=== PATIENT | male | born 2005 | race Caucasian/White ===

== ENCOUNTER 2023-09-03 06:18 | Emergency (ER) | payer SELFPAY ==
[2023-09-03 06:42] VITALS: BP 143/70; PULSE 86; RESP 20; TEMP 38; O2SAT 97; BMI 16.5
[2023-09-03 07:41] LABS: PCR FLU A Negative PCR FLU A (Negative); PCR FLU B Negative PCR FLU B (Negative); PCR RSV POSITIVE PCR RSV (Negative)
[2023-09-03 07:44] LABS: SARS PCR* Negative SARS-CoV-2 (Negative)
--- NOTE | 2023-09-03 07:52 | ED_ITS ---
HPI - General Adult General Chief complaint: Fever Stated complaint: shaking, leg cramps Time Seen by Provider: 09/03/23 06:54 Source: patient Mode of arrival: ambulatory Limitations: no limitations History of Present Illness HPI narrative: 18-year-old male coming in today complaining of not feeling well. He has a fever, cramping in his legs. He has had normal appetite. He does have a mild cough. Denies sore throat or earache. No headache. He is currently being treated for ear infection. Denies any diarrhea or abdominal discomfort. Cough is nonproductive and mild. Related Data Allergies Allergy/AdvReac Type Severity Reaction Status Date / Time aripiprazole Allergy Severe Seizure Verified 09/03/23 06:58 cat dander Allergy Intermediate Wheezing Verified 09/03/23 06:58 Review of Systems Status of ROS: Reports: 10 or more systems reviewed and unremarkable except as noted in History and below Exam Narrative: Exam Narrative: Well-nourished well-developed patient in no acute distress. Alert and oriented. Answers questions appropriately. Mood and affect are appropriate. Thoughts are goal oriented and rational. No tangential or magical thinking noted. Patient speaks in full sentences without needing to catch his breath. Speech is not slurred or pressured. He does not sound congested. HEENT: Normocephalic atraumatic. Pupils are equally round reactive to light. Extraocular muscles are intact. Conjunctivae are moist without any icterus noted. Moist mucous membranes. Posterior pharynx is normal. Neck is soft without any lymphadenopathy or thyromegaly. No masses are appreciated. Cardiovascular: Heart is regular rate and rhythm S1 and S2 are present without any murmurs. Lungs: Clear to auscultation bilaterally no wheezes rhonchi or rales are appreciated. Patient takes deep breaths without any discomfort. Abdomen: Soft and nontender nondistended with normal bowel sounds. Extremities: Bilateral lower extremities are without edema. Skin: Well perfused without any obvious rashes. Const: Vital Signs, click to edit/add: Vital Signs - 24 hr 09/03/23 06:42 Temperature 100.4 F H Pulse Rate [Left P ulse Oximeter] 86 Respiratory Rate 20 Blood Pressure [Ri ght Upper Arm] 143/70 H Pulse Oximetry 97 Oxygen Delivery Me thod Room Air Course Course ED Course: Triple swab was positive for RSV. Patient received a dose of Tylenol while he was here. Vital Signs Vital signs: Initial Vital Signs Temperature 100.4 F H 09/03/23 06:42 Temperature Source Temporal Artery Scan 09/03/23 06:42 Pulse Rate 86 09/03/23 06:42 Pulse Rhythm Regular 09/03/23 06:42 Respiratory Rate 20 09/03/23 06:42 Blood Pressure 143/70 H 09/03/23 06:42 Blood Pressure Mean 94 09/03/23 06:42 Blood Pressure Position Sitting 09/03/23 06:42 Pulse Oximetry 97 09/03/23 06:42 Oxygen Delivery Method Room Air 09/03/23 06:42 Vital Signs Temperature 100.4 F H 09/03/23 06:42 Pulse Rate 86 09/03/23 06:42 Respiratory Rate 20 09/03/23 06:42 Blood Pressure 143/70 H 09/03/23 06:42 Pulse Oximetry 97 09/03/23 06:42 Oxygen Delivery Method Room Air 09/03/23 06:42 Temperature 100.4 F H 09/03/23 06:42 Pulse Rate 86 09/03/23 06:42 Respiratory Rate 20 09/03/23 06:42 Blood Pressure 143/70 H 09/03/23 06:42 Pulse Oximetry 97 09/03/23 06:42 Oxygen Delivery Method Room Air 09/03/23 06:42 Medical Decision Making MDM Narrative Medical decision making narrative: 18-year-old male with fevers, cramping, positive for RSV. We discussed taking medication to keep his fevers down, we discussed increasing his fluid and food intake which will help with cramping. We discussed reasons to return. Patient was in agreement and had no other questions. Lab Data Lab results reviewed: Yes I reviewed the patient's lab results Labs: Lab Results 09/03/23 Range/Units 06:56 SARS-CoV-2 (PCR) Negative SARS-CoV-2 (Negative) Influenza Type A (PCR) Negative PCR FLU A (Negative) Influenza Type B (PCR) Negative PCR FLU B (Negative) RSV (PCR) POSITIVE PCR RSV A (Negative) Discharge Plan Discharge Clinical Impression: Respiratory syncytial virus (RSV) Patient Disposition: Home, Self-Care Condition: Stable Additional Instructions: Increase water and food intake. Take ibuprofen and/or Tylenol as needed/as directed to keep your fevers down. Follow Up/Referrals: Provider,Not a Local [Primary Care Provider] - Stand Alone Forms: [facility] Info Instructions
[2023-09-03 08:00] VITALS: TEMP 37.7
[2023-09-03] MEDS: ACETAMINOPHEN 500 MG TABLET 1000 MG PO (08:00)
[2023-09-03 08:01] VITALS: BP 138/71; PULSE 103; RESP 20; TEMP 37.7; O2SAT 97
== END 2023-09-03 08:04 | disposition home or self-care (01) ==
PROVIDERS: Family Medicine; Emergency Provider Family Medicine
DX: R50.9 Fever, unspecified (principal); B97.4 Respiratory syncytial virus as the cause of diseases classified elsewhere
CPT/HCPCS: 87631; 99283; 99284; A9270

== ENCOUNTER 2023-10-14 11:08 | Emergency (ER) | payer OTHER, SELFPAY ==
[2023-10-14 11:24] VITALS: BP 157/91; PULSE 80; RESP 20; TEMP 37.1; O2SAT 97
[2023-10-14 14:12] VITALS: BP 131/86; PULSE 60; RESP 16; O2SAT 99
--- NOTE | 2023-10-14 14:13 | ED_ITS ---
HPI - Psych General Time Seen by Provider: 14:13 Date Seen: 10/14/23 Chief Complaint: Psychiatric Problem/Disorder Stated Complaint: Depression Time Seen by Provider: 10/14/23 14:12 Source: patient and RN notes reviewed Mode of arrival: ambulatory Limitations: no limitations History of Present Illness HPI Narrative: This 18-year-old male is coming in with concern of underlying depression. He states the last 3-4 days it has been worse, he is had passive suicidal ideation but notes that he will not do it. He states he has 2 any family members to live for, could not inflict that level of pain on them. He has a long-term history of ADHD and depression. He states he has been on many medicines, he could not log into his healthcare chart. He notes he has tried Prozac, he is allergic to Abilify with the reported seizure from it. He thinks he has tried Zoloft. He has been on some different patches before. He has use Ritalin and Adderall for his ADHD. He is no longer on any ADHD meds. He has been on Wellbutrin in the past. He can not remember all of the different meds he has tried. He states he has had problems with doctors just prescribing him things. He last saw a therapist in June of 2022. He does not have any health insurance. He works from 8:00 a.m. to 5:00 p.m. during the day which makes getting into a clinic difficult. He could not get in anywhere today, actually did not go to work today to try to remedy his situation. He has otherwise been in good health, has no concerns with his underlying health. He denies any visual or auditory hallucinations. I have spent some time talking to him about all the different medicines he has been on, that we do not specialize in psychiatric medicine out of the ER. We basically stabilize people that her emergently ill, helped side of people need hospitalization. Did review with him that we have the telehealth that can help us possibly problem solve. He understands that without access to his full history, his extensive history of use of medicines that did not work for him, I a.m. very unlikely to be giving him initial medicine today. We will see if telehealth can potentially secure an appointment for medication consult in a timely fashion for him. From what he is telling me I am hopeful that he does not require hospitalization, he is certainly being proactive with his situ ation. complaint: suicidal ideation and feels depressed Related Data Home Medications Medication Instructions Recorded Confirmed No Known Home Medications 10/14/23 10/14/23 Allergies Allergy/AdvReac Type Severity Reaction Status Date / Time aripiprazole Allergy Severe Seizure Verified 09/03/23 06:58 cat dander Allergy Intermediate Wheezing Verified 09/03/23 06:58 Review of Systems Status of ROS: Reports: 6 or more systems reviewed and unremarkable except as noted in History and below PFSH PFS Social History Smoking Status: Current every day smoker What tobacco products do you use: cigarettes Do you use any of these nicotine containing products: None Second hand tobacco smoke exposure: No How often do you have a drink containing alcohol: never AUDIT-C Alcohol total score: 0 Non-prescribed substance use: denies use Exam Const: Vital Signs, click to edit/add: Vital Signs - 24 hr 10/14/23 11:24 10/14/23 14:12 Temperature 98.7 F Pulse Rate [Right Pulse Oximeter] 80 60 Respiratory Rate 20 16 Blood Pressure [Ri ght Upper Arm] 157/91 H 131/86 Pulse Oximetry 97 99 Oxygen Delivery Me thod Room Air Room Air Very well-kept 18-year-old male that is ambulatory into the ED. He is alert, i nteractive, no apparent distress. He has good eye contact, pupils are equal round reactive, sclera clear, symmetrical facial function. Neck is supple, no cervical adenopathy, no neck masses, full range of motion, no thyromegaly masses or nodules. Lungs are clear, good air entry, no wheezing or crackles. CV regular rate and rhythm, no murmur, normal S1-S2, no S3 or S4. Abdomen soft, nondistended, nontender, do not feel any organomegaly. Does endorse passive suicidal ideation without a definitive plan, no hallucinations. Documenting provider has reviewed patient's vital signs: yes Course Course ED Course: He understands that if telehealth does recommend hospitalization that we will need to proceed with laboratory workup. At this time I am not feeling it is necessary, am hopeful that we will be able to get him it disposition for outpatient follow-up. Consultations Consultation #1: Provided history to telehealth provider. She will be interviewing him next. 3:41 p.m.: Ashley Peng was the interviewer for [facility], she feels he is stable and safe for discharge, is not going to harm himself. Unfortunately he is applied for assistance for medical needs before, just does not have any extra money but makes too much. She has looked into [facility], crisis Center, walk-in clinic. She cannot schedule any psychiatry appointment for him due to no insurance. She understands the dilemma we are in given his complexity with prior medications, there is just no way that I a have any comfort level initiating medication management for him. Will have him try to follow up in clinic with his primary care provider if he can. Will give a note to be off today. Ashley feel she has some good resources for him that he will be able to look into an find some help with the information that she is providing him. She agrees with discharge to home. Time: 14:49 Vital Signs Vital signs: Initial Vital Signs Temperature 98.7 F 10/14/23 11:24 Temperature Source Oral 10/14/23 11:24 Pulse Rate 80 10/14/23 11:24 Pulse Rhythm Regular 10/14/23 11:24 Pulse Strength 3+ Normal 10/14/23 11:24 Respiratory Rate 20 10/14/23 11:24 Blood Pressure 157/91 H 10/14/23 11:24 Blood Pressure Mean 113 H 10/14/23 11:24 Blood Pressure Position Sitting 10/14/23 11:24 Pulse Oximetry 97 10/14/23 11:24 Oxygen Delivery Method Room Air 10/14/23 11:24 Vital Signs Temperature 98.7 F 10/14/23 11:24 Pulse Rate 80 10/14/23 11:24 Respiratory Rate 20 10/14/23 11:24 Blood Pressure 157/91 H 10/14/23 11:24 Pulse Oximetry 97 10/14/23 11:24 Oxygen Delivery Method Room Air 10/14/23 11:24 Temperature 98.7 F 10/14/23 11:24 Pulse Rate 60 10/14/23 14:12 Respiratory Rate 16 10/14/23 14:12 Blood Pressure 131/86 10/14/23 14:12 Pulse Oximetry 99 10/14/23 14:12 Oxygen Delivery Method Room Air 10/14/23 14:12 Discharge Plan Discharge Clinical Impression: Depression, Passive suicidal ideations Patient Disposition: Home, Self-Care Condition: Stable Instructions: Depression (ED), Suicide Prevention (ED) Additional Instructions: Recommend utilizing the resources and phone numbers provided to you by the telehealth provider. I also recommend that you try to follow-up in your primary care clinic, see if they may have any recommendations as far as medication management for you. Work with [facility] to see if they might be able to help you find a resource for medication management for your depression. Obviously if your worsening at any point, are feeling suicidal, do recommend that you seek emergent re-evaluation. Activity Level: Activity as Tolerated Prescriptions: No Action No Known Home Medications Follow Up/Referrals: Provider,Not a Local [Primary Care Provider] - Stand Alone Forms: [employer] Info Instructions
--- NOTE | 2023-10-14 16:09 | ED.NURSE ---
Went over DEC recommendations with pt, pt verbalized understanding of these recommendations. Resources given to pt.
== END 2023-10-14 16:00 | disposition home or self-care (01) ==
PROVIDERS: Emergency Provider Family Medicine
DX: R45.851 Suicidal ideations (principal); F32.A Depression, unspecified
CPT/HCPCS: 99283

== ENCOUNTER 2025-03-14 23:06 | Emergency (ER) | payer OTHER, SELFPAY ==
--- OUTSIDE RECORDS SUMMARY | 2025-03-14 23:09 | XMS_ITS | Encounter Summary ---
Author Organization [facility] Address [address] [place] [address] Care Team Providers Care Route Salesman Name Role Phone None Reported, Pcp Primary Care Provider Unavail able Reason for Visit * Reason Comments Leg Injury Fell and hit frausto on a bench, causing a left frausto laceration Encounter Details Date Type Department Care Team (Late st Contact Info) Description 02/15/2025 3:21 PM CDT - 02/15/2025 4:17 PM CDT Emergency [facility] [address] [place] [phone] Aleyda Esquivel, LEAKAGE TESTER, C.N.P. 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 Gender Identity Not on file Sexual Orientation Not on file documented as of this encounter Last Filed Vital Signs Vital Sign Reading Time Taken Comments Blood Pressure 112/56 02/15/2025 3:30 PM CDT Pulse 72 02/15/2025 3:30 PM CDT Temperature 35.8 C (96.4 F) 02/15/2025 3:25 PM CDT Respiratory Rate - - Oxygen Saturation 99% 02/15/2025 3:30 PM CDT Inhaled Oxygen Concentration - - Weight 93.7 kg (206 lb 9.1 oz) 02/15/2025 3:26 P M CDT Height - - Body Mass Index 26.52 11/05/2022 9:48 AM CORRUGATED FASTENER DRIVER documented in this encounter Discharge Instructions * Discharge Instructions* Aleyda Esquivel APRN, C.N.P. - 02/15/2025 4:08 PM CDT 1. Sutures out in 10 days. Primary Care or Urgent Care can take them out. Call them for appointment. 2. Clean twice a day with warm water and soap. Keep wound moist with Vaseline, Bacitracin, or Neosporin and covered until healed. 3. Showers ok, but no swimming, soaking, baths etc. until sutures are out 4. Watch for infection Come back to ER if any new or worsening symptoms. * Attachments The following attachments cannot be sent through Care Everywhere. * Laceration Care Adult [id number] (Czech) documented in this encounter Medications at Time of Discharge polyethylene glycol (MIRALAX) 17 gram powder packet Take 1 packet (17 g total) by mouth daily as needed for constipation. Dissolve each 17 g dose in 240 mLs (8 ounces) of beverage. 1 packet 11/05/2022 documented as of this encounter Procedure Notes * Aleyda Esquivel APRN, C.N.P. - 02/15/2025 3:45 PM CDTAssociated Order(s): Laceration Repair Procedure Laceration Repair Performed by: Aleyda Esquivel APRN, C.N.P. Authorized by: Aleyda Esquivel APRN, C.N.P. Care team members present 1. Aleyda Esquivel APRN, C.N.P. PROCEDURE DETAILS Repair type: Simple Limited defect created (wound extended): no Hemostasis achieved with: Direct pressure Contaminated: no Wound exploration: wound explored through full range of motion and entire depth of wound probed andvisualized Repair method: Sutures Suture size: 5-0 Suture material: Prolene Suture technique: Simple interrupted Number of sutures: 7 Approximation: Close CONSENT Consent obtained: verbal Consent given by: patient The benefits, risks and alternatives to the procedure and the potential need for sedation or anesthesia as well as the names, roles, and responsibilities of healthcare team members performing significant interventional tasks were discussed with the patient and/or decision maker. UNIVERSAL PROTOCOL All relevant documentation and testing were reviewed and available. All required blood products, implants, devices and or special equipment were made available as applicable. Pre-procedure verification was conducted and the correct site was marked if required. A fire risk and smoke assessment were done as applicable. The procedural time-out to verify correct patient, correct side/site, and procedure was conducted prior to performing the procedure and confirmed in a procedural pause. SEDATION / ANESTHESIA Anesthesia method: local infiltration Local infiltrate type: lidocaine, with epinephrine PRE PROCEDURE DETAILS Indication: laceration Location: Leg Leg location: Left lower leg Length (cm): 4 Depth (mm): 5 Circulation distal to injury: capillary refill < 2 sec, warm, pink and palpable pulse Movement distal to injury: normal Sensation distal to injury: normal Area cleansed with: Saline and povidone/iodine Amount of cleaning: Standard Irrigation solution: Sterile saline Irrigation method: Syringe Foreign body imaging: None Appropriate hand hygiene, gown, cap, mask, protective eyewear, sterile gloves, skin preparation, sterile drape, and strict aseptic technique were utilized as applicable for the procedure.: Yes POST PROCEDURE DETAILS Procedure completed successfully: yes Tetanus status up to date: Up to date Dressing Applied: yes Dressing applied: Antibiotic ointment and gauze dressing Wrapped with: Kerlix Circulation distal to injury: capillary refill < 2 sec, warm, pink and palpable pulse Movement distal to injury: normal Sensation distal to injury: normal Complications: no immediate complications Aleyda Esquivel APRN, C.N.P. 02/15/25 1615 documented in this encounter ED Notes * Aleyda Esquivel APRN, C.N.P. - 02/15/2025 3:38 PM CDT The patient verbally consented to an audio recording of their visit to assist with the completion of documentation. SUBJECTIVE CHIEF COMPLAINT/REASON FOR VISIT Leg Injury (Fell and hit frausto on a bench, causing a left frausto laceration ) HISTORY OF PRESENT ILLNESS History of Present Illness Mr. Spencer Preston is a 19 year old male who presents with a leg injury after a fall. He sustained the injury approximately one hour ago while dismantling a patio porch. He fell when the stool he was standing on slipped, causing him to land on a piece of wood. He sought immediate medical attention. He experiences significant pain in the leg but retains the ability to move his foot up and down without difficulty. No numbness is present, only pain. He has not taken any pain medication prior to arrival. His tetanus vaccination is up to date, having been administered within the last three years. He has a history of previous leg injuries requiring stitches. No head injury or other trauma from the fall. Last Tdap 2021 REVIEW OF SYSTEMS OBJECTIVE Initial Vitals [02/15/25 1525] Temperature (!) 35.8 ??C Pulse Rate 79 Heart Rate Resp Blood Pressure 115/68 SpO2 99 % Pain Score 7 PHYSICAL EXAMINATION Constitutional: Nursing note and vitals reviewed. No distress. HENT: Head: Normocephalic and atraumatic. Mouth/Throat: Mucous membranes are moist. Cardiovascular: Normal rate. Pulmonary/Chest: Effort normal. No tachypnea. Neurological: Alert. Skin: Skin is warm and intact. He is not diaphoretic. 4 cm linear laceration right mid-frausto. Normal distal sensation and movement, normal pedal pulse. Nogross contamination or foreign body. Psychiatric: He has a normal mood and affect. Behavior is normal. Judgment and thought content normal. ASSESSMENT/PLAN Assessment & Plan Laceration of the leg He sustained an acute laceration on the leg from a fall onto a wooden piece while dismantling a patio porch. The injury occurred within the last hour. Uncomplicated Laceration repaired in department, 7 sutures. See procedure note for details. Laceration care instructions reviewed with patient. He understands to come back if any sign of infection. Assessment and Plan DIFFERENTIAL DIAGNOSES Uncomplicated laceration, no gross contamination or foreign body and no evidence of neurovascular injury. No other injury reported or noted on exam.. Care is significantly affected by the following Social Determinants of Health: None appreciated. Final Diagnoses: as of 02/15/25 1611 Laceration Lower Leg Without Foreign Body Initial Left The following tests were considered but ultimately not performed: No imaging indicated. Aleyda Esquivel APRN, C.N.PJonas 02/15/25 1613 documented in this encounter Plan of Treatment Not on file documented as of this encounter Procedures Procedure Name Priority Date/Time Associated Diagnosis Comments LACERATION REPAIR Routine 02/15/2025 3:4 5 PM CDT documented in this encounter Results * Laceration Repair (02/15/2025 3:45 PM CDT) Narrative Aleyda Esquivel APRN, C.N.P. - 02/15/2025 3:45 PM CDT Aleyda Esquivel APRN, C.NEran 02/15/2025 4:15 PM Laceration Repair Performed by: Aleyda Esquivel APRN, C.N.P. Authorized by: Aleyda Esquivel APRN, C.N.Sage Care team members present 1. Aleyda Esquivel APRN, C.NEran PROCEDURE DETAILS Repair type: Simple Limited defect created (wound extended): no Hemostasis achieved with: Direct pressure Contaminated: no Wound exploration: wound explored through full range of motion and entire depth of wound probed and visualized Repair method: Sutures Suture size: 5-0 Suture material: Prolene Suture technique: Simple interrupted Number of sutures: 7 Approximation: Close CONSENT Consent obtained: verbal Consent given by: patient The benefits, risks and alternatives to the procedure and the potential need for sedation or anesthesia as well as the names, roles, and responsibilities of healthcare team members performing significant interventional tasks were discussed with the patient and/or decision maker. UNIVERSAL PROTOCOL All relevant documentation and testing were reviewed and available. All required blood products, implants, devices and or special equipment were made available as applicable. Pre-procedure verification was conducted and the correct site was marked if required. A fire risk and smoke assessment were done as applicable. The procedural time-out to verify correct patient, correct side/site, and procedure was conducted prior to performing the procedure and confirmed in a procedural pause. SEDATION / ANESTHESIA Anesthesia method: local infiltration Local infiltrate type: lidocaine, with epinephrine PRE PROCEDURE DETAILS Indication: laceration Location: Leg Leg location: Left lower leg Length (cm): 4 Depth (mm): 5 Circulation distal to injury: capillary refill < 2 sec, warm, pink and palpable pulse Movement distal to injury: normal Sensation distal to injury: normal Area cleansed with: Saline and povidone/iodine Amount of cleaning: Standard Irrigation solution: Sterile saline Irrigation method: Syringe Foreign body imaging: None Appropriate hand hygiene, gown, cap, mask, protective eyewear, sterile gloves, skin preparation, sterile drape, and strict aseptic technique were utilized as applicable for the procedure.: Yes POST PROCEDURE DETAILS Procedure completed successfully: yes Tetanus status up to date: Up to date Dressing Applied: yes Dressing applied: Antibiotic ointment and gauze dressing Wrapped with: Kerlix Circulation distal to injury: capillary refill < 2 sec, warm, pink and palpable pulse Movement distal to injury: normal Sensation distal to injury: normal Complications: no immediate complications Aleyda Esquivel APRN, C.N.P. PROCEDURE/MINOR SURGICAL ORDERABLES Final Result documented in this encounter Visit Diagnoses Diagnosis Laceration Lower Leg Without Foreign Body Initial Left- Primary documented in this encounter Administered Medications Inactive Administered Medications - up to 3 most recent administrations Medication Order MAR Action Action Date Dose Rate Site ibuprofen tablet 400 mg 400 mg, oral, Once, On Sat02/15/25 at 1550, For 1 dose, Take with food or milk if GI disturbances occur with use. Given 02/15/2025 3:51 PM CDT 400 mg Additional Administered Medications Medication Order MAR Action Action Date Dose Rate Site IG Given 2003 documented in this encounter Active and Recently Administered Medications Times are shown in CDT. Scheduled Medication Order 02/13/2025 02/14/2025 02/15/2025 ibuprofen tablet 400 mg (COMPLETED) 400 mg, oral, Once, On Sat02/15/25 at 1550, For 1 dose, Take with food or milk if GI disturbances occur with use. 1551 (Given - Provid er: Ryann Cronin RJonasNJonas) lidocaine-EPINEPHrine 1 %-1:100,000 injection 10 mL (Xylocaine w/epi) 10 mL, infiltration, Once, On Sat25 at 1543, For 1 dose 1543 (Due) documented in this encounter Care Teams Route Salesman Relationship Specialty Start Date End Date None Reported, Pcp PCP - General Family Medicine 02/15/25 documented as of this encounter
--- OUTSIDE RECORDS SUMMARY | 2025-03-14 23:09 | XMS_ITS | Encounter Summary ---
Author Organization [facility] Address [address] [place] [address] Care Team Providers Care Transit Driver Name Role Phone None Reported, Pcp Primary Care Provider Unavail able Reason for Visit * Reason Comments Dental Pain Pt presents to ED wi th concerns of right upper dental pain. Has had intermittent pain but pain developed again today. Encounter Details Date Type Department Care Team (Late st Contact Info) Description 02/24/2025 7:56 PM CDT - 02/24/2025 9:10 PM CDT Emergency [facility] [address] [place] [phone] Christy Lewis, PJonasA.-C., P.A. 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 Gender Identity Not on file Sexual Orientation Not on file documented as of this encounter Last Filed Vital Signs Vital Sign Reading Time Taken Comments Blood Pressure 188/88 02/24/2025 8:30 PM CDT Pulse 55 02/24/2025 8:30 PM CDT Temperature 36.1 C (97 F) 02/24/2025 8:30 PM CDT Respiratory Rate 16 02/24/2025 8:30 PM CDT Oxygen Saturation 98% 02/24/2025 8:30 PM CDT Inhaled Oxygen Concentration - - Weight 93 kg (205 lb 0.4 oz) 02/24/2025 8:30 PM CDT Height - - Body Mass Index 26.32 11/05/2022 9: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 - 02/24/2025 9:05 PM CDT Ibuprofen 800 mg as needed for symptoms. Take the entire course of antibiotic as prescribed. Please follow up with your dentist tomorrow for further management. Return to the ED with new or worsening symptoms such as difficulty breathing, increasing facial swelling despite 48-72 hours of antibiotics, or severe uncontrolled pain. * Attachments The following attachments cannot be sent through Care Everywhere. * Dental Abscess [id number] (Persian) documented in this encounter Medications at Time of Discharge polyethylene glycol (MIRALAX) 17 gram powder packet Take 1 packet (17 g total) by mouth daily as needed for constipation. Dissolve each 17 g dose in 240 mLs (8 ounces) of beverage. 1 packet 11/05/2022 amoxicillin-pot clavulanate (Augmentin) 875-125 mg per tabletIndications :Cracked Tooth,Toothache Take 1 tablet by mouth 2 (two) times a day for 7 days. 14 tablet 02/24/2025 5 documented as of this encounter Procedure Notes * Christy Lewis P.A.-C., P.A. - 02/24/2025 9:10 PM CDTAssociated Order(s): Dental Procedure Procedure Dental Procedure Performed by: Christy Lewis P.A.-C., P.A. Authorized by: Christy Lewis P.A.-C., P.AJonas Care team members present 1. Christy Lewis P.A.-C., PMarlin PROCEDURE DETAILS Nerves injected: right superior alveolar nerve CONSENT Consent obtained: verbal Consent given by: patient The benefits, risks and alternatives to the procedure and the potential need for sedation or anesthesia as well as the names, roles, and responsibilities of healthcare team members performing significant interventional tasks were discussed with the patient and/or decision maker. PRE-PROCEDURE DETAILS Indications: dental pain SEDATION / ANESTHESIA Anesthesia method: nerve block and topical application Topical application type: benzocaine Nerve block type: see MAR for dose, bupivacaine, with epinephrine POST PROCEDURE DETAILS Procedure completed successfully: yes Complications: no immediate complications Christy Lewis P.A.-C., Nik 02/25/252118 documented in this encounter ED Notes * Christy Lewis P.A.-C., Nik - 02/24/2025 9:10 PM CDT Images from the original note were not included. SUBJECTIVE CHIEF COMPLAINT/REASON FOR VISIT Dental Pain (Pt presents to ED with concerns of right upper dental pain. Has had intermittent pain but pain developed again today.) HISTORY OF PRESENT ILLNESS Patient is a 19 year old male presenting to the ED today for evaluation of right upper dental pain worsening today. He tells me he has a cracked tooth that has been bothering him on and off for the past several months but today pain became severe. No improvement with tylenol and ibuprofen at home. He also states he has used multiple over the counter topical solutions including Orajel and a dental paste. He has a dentist appointment tomorrow morning but is requesting pain control overnight. No fevers, chills, facial swelling, sore throat, difficulty swallowing, difficulty breathing or other new symptoms. Dental Pain Associated symptoms: no drooling, no facial swelling and no fever REVIEW OF SYSTEMS Constitutional: Negative for chills and fever. HENT: Positive for dental problem. Negative for drooling and facial swelling. OBJECTIVE Initial Vitals [02/24/25 2030] Temperature 36.1 ??C Pulse Rate (!) 55 Heart Rate Resp Rate 16 Blood Pressure (!) 188/88 SpO2 98 % Pain Score 10 - Worst possible pain PHYSICAL EXAMINATION Constitutional: Nursing note and vitals reviewed. No distress. HENT: Head: Normocephalic and atraumatic. Mouth/Throat: Oropharynx is clear and moist. Cracked and partially decayed tooth right upper side 1st premolar. Tenderness to palpation. No gum edema or erythema. No trismus, no edema of the neck. Eyes: Conjunctivae are normal. Pupils are equal, round, and reactive to light. Neck: Neck supple. No neck adenopathy. Cardiovascular: Regular rhythm and normal heart sounds. Pulmonary/Chest: Effort normal and breath sounds normal. No respiratory distress. Musculoskeletal: General: Normal range of motion. Cervical back: Normal range of motion and neck supple. Neurological: Alert. Skin: Skin is warm and dry. Psychiatric: He has a normal mood and affect. ASSESSMENT/PLAN 19 year old male presenting to the ED with right upper sided dental pain on and off over the past several months but severe today. He has a dentist appointment tomorrow but states he cannot tolerate the pain. He has received a dental block in the past and is requesting that today. Differential diagnosis includes dental abscess, pain due to dental caries, gingivitis, deep neck space infection, among others. Anterior superior alveolar nerve block performed with complete resolution of pain. Patient given first dose of Augmentin here and will follow up with his dentist for further management. Patient is comfortable with the plan for discharge and understands return precautions to the ED. Chronic illness impacting care:none Social determinants of health: none Tests considered but not performed: none ED Course as of 02/25/252120Feb 24, 20252020 Patient was seen and evaluated. Will perform dental block. 2050 Dental block performed Final Diagnoses: as of 02/25/252120 Cracked Tooth Toothache Christy Lewis P.A.-C., P.A. 02/25/252120 documented in this encounter Plan of Treatment Not on file documented as of this encounter Procedures Procedure Name Priority Date/Time Associated Diagnosis Comments EMERGENCY DENTAL PROCEDURE Routine 02/24/2025 9:10 PM CDT documented in this encounter Results * Dental Procedure (02/24/2025 9:10 PM CDT) Narrative Christy Lewis P.A.-C., PMarlin - 02/24/2025 9:10 PM CDT Christy Lewis P.A.-C., PMarlin 02/25/2025 9:19 PM Dental Procedure Performed by: Christy Lewis P.A.-C., PJonasA. Authorized by: Christy Lewis P.A.-C., PMarlin Care team members present 1. Christy Lewis P.A.-C., PMarlin PROCEDURE DETAILS Nerves injected: right superior alveolar nerve CONSENT Consent obtained: verbal Consent given by: patient The benefits, risks and alternatives to the procedure and the potential need for sedation or anesthesia as well as the names, roles, and responsibilities of healthcare team members performing significant interventional tasks were discussed with the patient and/or decision maker. PRE-PROCEDURE DETAILS Indications: dental pain SEDATION / ANESTHESIA Anesthesia method: nerve block and topical application Topical application type: benzocaine Nerve block type: see MAR for dose, bupivacaine, with epinephrine POST PROCEDURE DETAILS Procedure completed successfully: yes Complications: no immediate complications Christy Lewis P.A.-C., P.AJonas PROCEDURE/MINOR TA GICAL ORDERABLES Final Result documented in this encounter Visit Diagnoses Diagnosis Cracked Tooth- Primary Toothache documented in this encounter Administered Medications Inactive Administered Medications - up to 3 most recent administrations Medication Order MAR Action Action Date Dose Rate Site amoxicillin-pot clavulanate 875-125 mg per tablet 1 tablet (Augmentin) 1 tablet, oral, Once, On Sat02/24/25 at 2052, For 1 dose, Drug Monitoring Program: Pharmacist to adjust medication dosing based on indication and drug clearance factors., Indications: Head, neck, and ENT infectionIndications:Head, neck, and ENT infection Given 02/24/2025 9:09 PM CDT 1 tablet benzocaine 20 % mucosal gel 1 Application (Lollicaine) 1 Application, mouth/throat, Once, On Sat02/24/25 at 2040, For 1 dose Given 02/24/2025 8:46 PM CDT 1 Application BUPivacaine-EPINEPHrine bitart 0.5 %-1:200,000 dental cartridge 1.8 mL (Marcaine w/ Epi) 1.8 mL, dental, Once, On Sat02/24/25 at 2021, For 1 dose Given 02/24/2025 8:46 PM CDT 1.8 mL documented in this encounter Active and Recently Administered Medications Times are shown in CDT. Scheduled Medication Order 02/22/2025 02/23/2025 02/24/2025 amoxicillin-pot clavulanate 875-125 mg per tablet 1 tablet (Augmentin) (COMPLETED) 1 tablet, oral, Once, On Sat02/24/25 at 2052, For 1 dose, Drug Monitoring Program: Pharmacist to adjust medication dosing based on indication and drug clearance factors., Indications: Head, neck, and ENT infection 2108 (Given - Provid er: Isha Holloway, R.N.) benzocaine 20 % mucosal gel 1 Application (Lollicaine) (COMPLETED) 1 Application, mouth/throat, Once, On Sat02/24/25 at 2040, For 1 dose 2045 (Given - Provid er: Ishapaty Holloway, R.N.) BUPivacaine-EPINEPHrine bitart 0.5 %-1:200,000 dental cartridge 1.8 mL (Marcaine w/ Epi) (COMPLETED) 1.8 mL, dental, Once, On Sat02/24/25 at 2021, For 1 dose 2045 (Given - Provid er: Isha Holloway, R.N.) documented in this encounter Care Teams Transit Driver Relationship Specialty Start Date End Date None Reported, Pcp PCP - General Family Medicine 02/15/25 documented as of this encounter
--- OUTSIDE RECORDS SUMMARY | 2025-03-14 23:09 | XMS_ITS | Encounter Summary ---
Author Organization [facility] Address [address] [place] [address]. [place] [address] Care Team Providers Care Client Support Professional Name Role Phone Alicia Magaña Primary Care Provider [phone] Preethi Sutherland MD Unavailable + Martha Cavanaugh MD Unavailable [phone] Jose Brunner MD Unavailable No Ref-Primary, Physician Primary Care Provider Encounter Details Date Type Department Care Team (Late st Contact Info) Description 11/17/2021 Documentation Only INTERFACED REPORT Unknown, Provider Social History Tobacco Use Types Packs/Day Years Used Date Smoking Tobacco: Never Smokeless Tobacco: Current Comments:exposure Alcohol Use Standard Drinks/Week Comments Not Asked 0 (1 standard drink = 0.6 oz pur e alcohol) PHQ-2 Answer Date Recorded PHQ-2 Score 0 05/16/2021 Adolescent Education Answer Date Record ed Getting School Help Needed Not on file 08/27 Sex and Gender Information Value Date Recorded Sex Assigned at Not on file 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 No / Unsure 11/17/2021 6:22 PM SERVICE TECH documented as of this encounter Plan of Treatment Not on file documented as of this encounter Visit Diagnoses Not on filedocumented in this encounter Additional Health Concerns Assessment Noted Time PHQ-9 Depression Total Score: 3 05/20/20 21 8:48 PM CDT documented as of this encounter Care Teams Client Support Professional Relationship Specialty Start Date End Date Alicia Magaña PCP - General Family Practice 06/01/14 07/29/24 No Ref-Primary, Physician PCP - General 07/30/24 Preethi Sutherland MD Pediatrics 01/04/16 Martha Cavanaugh MD [address] [phone] Referring Physician 01/26/16 Jose Brunner MD [address] [place] [id number] Assigned PCP 04/26/21 07/02/24 documented as of this encounter
--- OUTSIDE RECORDS SUMMARY | 2025-03-14 23:09 | XMS_ITS | Clinical Summary ---
Author Organization [facility] Address [address] [place] [address] Care Team Providers Care Impress Associate Name Role Phone None Reported, Pcp Primary Care Provider Unavail able Source Comments Patient records contain information from all sites at [facility]. For routine questions regarding patient records, call [phone] during business hours, M-F 8:00 AM - 5:00 PM Central Time. Record requests for emergency care only can be directed to [phone] at any time.[facility] Allergies Active Allergy Reactions Criticality Noted Date Comments Aripiprazole Angioedema (Reselect Reaction) Medications polyethylene glycol (MIRALAX) 17 gram powder packet Take 1 packet (17 g total) by mouth daily as needed for constipation. Dissolve each 17 g dose in 240 mLs (8 ounces) of beverage. 1 packet 2 Active Additional Information Patient not taking.Reported on 02/15/2025 amoxicillin-pot clavulanate (Augmentin) 875-125 mg per tabletIndicatio ns:Cracked Tooth,Toothache Take 1 tablet by mouth 2 (two) times a day for 7 days. 14 tablet 03/03/20 25 Active Problems No known active problems Encounters Date Type Department Care Team Description 02/24/2025 7:56 PM CDT - 02/24/2025 9:10 PM CDT Emergency [facility] [address] [id number] Christy Lewis P.A.-C., P.A. Cracked Tooth (Primary Dx); Toothache Discharge Disposition: Home or Self Care 02/15/2025 3:21 PM CDT - 02/15/2025 4:17 PM CDT Emergency [facility] [address] [place] [address], [place] [address] Aleyda Esquivel APRN CJonasN.P. Laceration Lower Leg Without Foreign Body Initial Left (Primary Dx) Discharge Disposition: Home or Self Care from Last 3 Months Immunizations Immunization Administration Dates Next Due 4vHPV (discontinued) 2015 9vHPV 05/30/2016,01/30/2016 DTaP, Unspecified 08/25/2004, 4,2003,2002 H1N1 All Forms 11/30/2009 HepB Pediatric/Adolescent 08/25/2004,2003, 2003 Hib, Unspecified 08/25/2004,2003, 3 Hib-HepB 08/25/2004,2003,2003 IPV 04/12/2004,2003,2003 Influenza, Injectable, Quadrivalent 08/10/2019,1 Influenza, Seasonal, Injectable 08/28/2012,09/19,10/03/2004 Influenza, Unspecified 09/19/2005,10/03/2004 MCV4 (Menactra)(Discontinued) 2015 MCV4 (Menveo) 07/26/2021 MMR 06/25/2008,07/26/2004 PCV13 08/25/2004,01/03/2004 PCV7 (discontinued) 08/25/2004, 4,2003,2002 Tdap 08/18/2022,2015 TUAN 07/20/2015,07/26/2004 influenza trivalent vaccine (6 months and older)(PF) 08/25/2004 influenza vaccine quad (FLUZONE/FLUARIX) (6 months and older)(PF) 09/21/2013 Social History Tobacco Use Types Packs/Day Years Used Date Smoking Tobacco: Some Days Cigarettes Smokeless Tobacco: Never Tobacco Cessation:Ready to Q uit: Not Asked; Counseling Given: Not Answered Alcohol Use Standard Drinks/Week Comments Yes 2 (1 standard drink = 0.6 oz pur e alcohol) Dental Answer Date Recorded Dental: Regular Dentist Unknown 11/05/20 Sex and Gender Information Value Date Recorded Sex Assigned at Not on file 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 Gender Identity Not on file Sexual Orientation Not on file Last Filed Vital Signs Vital Sign Reading Time Taken Comments Blood Pressure 188/88 02/24/2025 8:30 PM CDT Pulse 55 02/24/2025 8:30 PM CDT Temperature 36.1 C (97 F) 02/24/2025 8:30 PM CDT Respiratory Rate 16 02/24/2025 8:30 PM CDT Oxygen Saturation 98% 02/24/2025 8:30 PM CDT Inhaled Oxygen Concentration - - Weight 93 kg (205 lb 0.4 oz) 02/24/2025 8:30 PM CDT Height 188 cm (6' 2) 11/05/2022 9:48 AM LUMBER GRADER Body Mass Index 26.32 11/05/2022 9:48 AM LUMBER GRADER Plan of Treatment Health Maintenance Due Date Last Done Comments HIV Screening 2003 Hearing Screening during Wel l Child Visit 2003 Hepatitis C Screening 2003 TB Screening during Well Chi ld Visit 2003 Tobacco Cessation counseling 2003 1 week Well Child Check-Up 2003 1 month Well Child Check-Up 2003 2 month Well Child Check-Up 2003 4 month Well Child Check-Up 2003 9 month Well Child Check-Up 02/28/2004 15 month Well Child Check-Up 08/29/2004 18 month Well Child Check-Up 11/29/2004 2 year Well Child Check-Up 05/29/2005 30 month Well Child Check-Up 11/29/2005 3 year Well Child Check-Up 05/29/2006 Well Child Check-Up Complete d in Past Year 05/29/2006 IPV Vaccines (4 of 4 - 4-dos e series) 2007 04/12/2004, 2003, 2003 5 year Well Child Check-Up 05/29/2008 6 year Well Child Check-Up 05/29/2009 Pneumococcal vaccine (0-49 y ears) (1 of 1 - PPSV23) 2009 08/25/2004, 08/25/2004, 01/03/2004, Additional history exists 7 year Well Child Check-Up 05/29/2010 8 year Well Child Check-Up 05/29/2011 10 year Well Child Check-Up 05/29/2013 12 year Well Child Check-Up 05/29/2015 13 year Well Child Check-Up 05/29/2016 14 year Well Child Check-Up 05/29/2017 15 year Well Child Check-Up 05/29/2018 16 year Well Child Check-Up 06/25/2019 17 year Well Child Check-Up 05/29/2020 18 year Well Child Check-Up 05/29/2021 19 year Well Child Check-Up 05/29/2022 20 year Well Child Check-Up 05/29/2023 21 year Well Child Check-Up 05/29/2024 Well Child Check-Up ([facility]) 05/29/2024 COVID-19 Vaccine (2023-2 5 season) 2024 Influenza Vaccine (#1) 2024 9, 08/12/2017, 09/21/2013, Additional history exists Depression Screening (Annual PHQ-2) 11/11/2024 DTaP,Tdap,and Td Vaccines (7 - Td or Tdap) 08/18/2032 08/18/2022, 2015, 08/25/2004, Additional history exists Hepatitis B Vaccines Completed 08/25/2004, 08/25/2004, 2003, Additional history exists Varicella Vaccines Completed 07/20/2015, 07/26/2004 HPV Vaccines Completed 05/30/2016, 2 11/2015, 2015 Meningococcal Vaccine Completed 07/26/2021, 015 Procedures Procedure Name Priority Date/Time Associated Diagnosis Comments EMERGENCY DENTAL PROCEDURE Routine 02/24/2025 9:10 PM CDT LACERATION REPAIR Routine 02/15/2025 3:4 5 PM CDT from Last 3 Months Results * Dental Procedure (02/24/2025 9:10 PM CDT) Narrative Christy Lewis PMaria Elena.-C., P.A. - 02/24/2025 9:10 PM CDT Christy Lewis P.A.-C. PMarlin 02/25/2025 9:19 PM Dental Procedure Performed by: Christy Lewis P.A.-C., P.A. Authorized by: Christy Lewis P.A.-C., P.AJonas Care team members present 1. Christy Lewis P.A.-C., P.AJonas PROCEDURE DETAILS Nerves injected: right superior alveolar [...] yes Complications: no immediate complications Christy Lewis P.A.-C. PMarlin PROCEDURE/MINOR TA GICAL ORDERABLES Final Result * Laceration Repair (02/15/2025 3:45 PM CDT) Narrative Aleyda Esquivel APRN C.N.PJonas - 02/15/2025 3:45 PM CDT Aleyda Esquivel APRN C.N.PJonas 02/15/2025 4:15 PM Laceration Repair Performed by: Aleyda Esquivel APRN C.N.P. Authorized by: Aleyda Esquivel APRN C.N.PJonas Care team members present 1. Aleyda Esquivel APRN C.N.PJonas PROCEDURE DETAILS Repair type: Simple Limited defect [...] APRN, C.N.P. PROCEDURE/MINOR SURGICAL ORDERABLES Final Result from Last 3 Months Insurance [employer] Care Teams Impress Associate Relationship Specialty Start Date End Date None Reported, Pcp PCP - General Family Medicine 02/15/25
--- OUTSIDE RECORDS SUMMARY | 2025-03-14 23:09 | XMS_ITS | Encounter Summary ---
Author Organization [facility] Address [address] [place] [address]. 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 No / Unsure 11/17/2021 6:22 PM DIRECTOR OF RESIDENTIAL SERVICES documented as of this encounter Plan of Treatment Not on file documented as of this encounter Visit Diagnoses Not on filedocumented in this encounter Additional Health Concerns Assessment Noted Time PHQ-9 Depression Total Score: 3 05/20/20 21 8:48 PM CDT documented as of this encounter Care Teams Hull Inspector Relationship Specialty Start Date End Date Alicia Magaña PCP - General Family Practice 06/01/14 07/29/24 No Ref-Primary, Physician PCP - General 07/30/24 Preethi Sutherland MD Pediatrics 01/04/16 Martha Cavanaugh MD [address] [phone] Referring Physician 01/26/16 Jose Brunner MD [address] [place] [id number] Assigned PCP 04/26/21 07/02/24 documented as of this encounter
--- OUTSIDE RECORDS SUMMARY | 2025-03-14 23:09 | XMS_ITS | Encounter Summary ---
Author Organization [facility] Address [address] [place] [address]. [place] [address] Care Team Providers Care Job Captain Name Role Phone Alicia Magaña Primary Care Provider Preethi Sutherland MD Unavailable + Vanesa Valentine GC Unavailable [phone] Martha Cavanaugh MD Unavailable Jose Brunner MD Unavailable No Ref-Primary, Physician Primary Care Provider Encounter Details Date Type Department Care Team (Late st Contact Info) Description 06/15/2015 Records - [facility] CONVERSION Scan, Non-Provider Social History Tobacco Use Types Packs/Day Years Used Date Smoking Tobacco: Never Alcohol Use Standard Drinks/Week Comments No 0 (1 standard drink = 0.6 oz pur e alcohol) Sex and Gender Information Value Date Recorded Sex Assigned at Not on file 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 Gender Identity Not on file Sexual Orientation Not on file documented as of this encounter Plan of Treatment Not on file documented as of this encounter Visit Diagnoses Not on filedocumented in this encounter Care Teams Job Captain Relationship Specialty Start Date End Date Alicia Magaña PCP - General Family Practice 06/01/14 07/29/24 No Ref-Primary, Physician PCP - General 07/30/24 Preethi Sutherland MD Pediatrics 01/04/16 Vanesa Valentine GC [address] [phone] Genetic Counselor Genetic Counselor, [place] 01/04/16 Martha Cavanaugh MD [facility] [address] [place] [address] [place] [phone] Referring Physician 01/26/16 Jose Brunner MD [address] [place] [id number] Assigned PCP 04/26/21 07/02/24 documented as of this encounter
--- OUTSIDE RECORDS SUMMARY | 2025-03-14 23:09 | XMS_ITS | Encounter Summary ---
Author Organization [facility] Address [address] [place] [address] Care Team Providers Care Sales And Service Agent Name Role Phone Unavailable Primary Care Provider Unavailabl e Reason for Visit * Reason Comments Fever Generalized Body Aches Chills Abdominal Pain Encounter Details Date Type Department Care Team (Late st Contact Info) Description 03/10/2025 8:51 PM CDT - 03/10/2025 9:25 PM CDT Emergency Page Emergency [address] [place] [address] [phone] Mandeep Aguilar NP [address] [place] [id number] Viral syndrome (Primary Dx) Discharge Disposition: Home or Self Care Social History Tobacco Use Types Packs/Day Years Used Date Smoking Tobacco: Never Assessed Sex and Gender Information Value Date Recorded Sex Assigned at Not on file Legal Sex Male 6:47 PM PDT Gender Identity Not on file Sexual Orientation Not on file documented as of this encounter Last Filed Vital Signs Vital Sign Reading Time Taken Comments Blood Pressure 152/70 03/10/2025 8:54 PM CDT Pulse 85 03/10/2025 8:54 PM CDT Temperature 37.7 C (99.8 F) 03/10/2025 8:54 PM CDT Respiratory Rate - - Oxygen Saturation 95% 03/10/2025 8:54 PM CDT Inhaled Oxygen Concentration - - Weight 89.8 kg (198 lb) 03/10/2025 8:56 PM CDT Height 185.4 cm (6' 1) 03/10/2025 8:56 PM CDT Body Mass Index 26.12 03/10/2025 8:56 PM CDT documented in this encounter Discharge Instructions * Discharge Instructions* Mandeep Aguilar NP - 03/10/2025 9:18 PM CDT Toradol as needed for pain and fever. Compazine as needed for nausea or headache. Drink plenty of fluids and rest. Make an appointment in clinic if your symptoms do not improve by next week. Sooner follow up in clinic if symptoms worsen. documented in this encounter Medications at Time of Discharge albuterol HFA 90 mcg/actuation inhaler Inhale 2 Puffs into the lungs every 4 (four) hours as needed 02/11/2025 fluticasone (FLONASE) 50 mcg/actuation nasal spray Place 2 Sprays into the nostril(s) daily 02/11/2025 ketorolac (TORADOL) 10 mg tabletIndications :Viral syndrome Take 1 Tablet by mouth every 6 (six) hours as needed for pain 20 Tablet 03/10/2025 polyethylene glycol, PEG, 3350 (GLYCOLAX) 17 gram/dose powder Take 17 g by mouth daily 11/05/2022 prochlorperazine (COMPAZINE) 10 mg tabletIndications :Viral syndrome Take 1 Tablet by mouth every 6 (six) hours as needed for nausea 10 Tablet 03/10/2025 sucralfate (CARAFATE) 1 gram tablet Take 1 g by mouth 4 (four) times a day 02/02/2025 documented as of this encounter ED Notes * Mandeep Aguilar NP - 03/10/2025 9:20 PM CDT HPI Chief Complaint Patient presents with Fever Generalized Body Aches Chills Abdominal Pain HPI 19-year-old male presents to the ER for evaluation of flu-like symptoms. Symptoms have been presentfor the past three days. Sweats, chills, no measured fever. No thermometer at home. He has had intermittent diarrhea and vomiting for the past couple of days. No vomiting today. Was able to drink 6 bottles of water and some orange juice. Seen in an outside facility yesterday for STD testing, has a new partner and wanted to make sure that his intermittent lower abdominal pain was not related to any STDs, this came back negative. He has been using Tylenol and ibuprofen as needed for headache, fever, chills and bodyaches. Has had a sore throat and infrequent nonproductive cough. He is requestinga note stating that he was seen in the emergency department to give to his employer being he has been out for a couple of days. He would like to be tested for influenza and COVID. Juan Luis Coma Scale Score: 15 Patient History No past medical history on file. No past surgical history on file. No family history on file. Social History Tobacco Use Smoking status: Not on file Smokeless tobacco: Not on file Substance Use Topics Alcohol use: Not on file Drug use: Not on file Review of Systems Review of Systems All other systems reviewed and are negative. Physical Exam ED Triage Vitals BP 03/10/252053 (!) 152/70 Pulse 03/10/252053 85 Resp -- Temp 03/10/252053 99.8 ??F (37.7 ??C) Temp src 03/10/252053 Oral SpO2 03/10/252053 95 % Height 03/10/252055 6' 1 (1.854 m) Weight 03/10/252055 198 lb (89.8 kg) Pain Score 03/10/252055 3 Physical Exam Vitals and nursing note reviewed. Constitutional: Appearance: He is well-developed. HENT: Head: Normocephalic. Right Ear: Tympanic membrane normal. Left Ear: Tympanic membrane normal. Mouth/Throat: Mouth: Mucous membranes are moist. Pharynx: Posterior oropharyngeal erythema present. Cardiovascular: Rate and Rhythm: Normal rate and regular rhythm. Pulmonary: Effort: Pulmonary effort is normal. Breath sounds: Normal breath sounds. Abdominal: General: Abdomen is flat. Bowel sounds are normal. Palpations: Abdomen is soft. Tenderness: There is no abdominal tenderness. There is no right CVA tenderness or left CVA tenderness. Musculoskeletal: Cervical back: Normal and normal range of motion. No muscular tenderness. Thoracic back: Normal. Lumbar back: Normal. Lymphadenopathy: Cervical: No cervical adenopathy. Skin: General: Skin is warm. Capillary Refill: Capillary refill takes less than 2 seconds. Neurological: General: No focal deficit present. Mental Status: He is alert and oriented to person, place, and time. Psychiatric: Mood and Affect: Mood normal. Behavior: Behavior normal. Procedures Labs Reviewed RESPIRATORY 4-PLEX ED Course & MDM Orders Placed This Encounter Medications prochlorperazine (COMPAZINE) 10 mg tablet Sig: Take 1 Tablet by mouth every 6 (six) hours as needed for nausea Dispense: 10 Tablet Refill: 0 ketorolac (TORADOL) 10 mg tablet Sig: Take 1 Tablet by mouth every 6 (six) hours as needed for pain Dispense: 20 Tablet Refill: 0 Medical Decision Making Problems Addressed: Viral syndrome: complicated acute illness or injury Risk Prescription drug management. Plan: Toradol as needed for pain and fever. Compazine as needed for nausea or headache. Drink plenty of fluids and rest. Make an appointment in clinic if your symptoms do not improve by next week. Sooner follow up in clinic if symptoms worsen. * Juanita Benitez RN - 03/10/2025 8:59 PM CDT Presents with 3 days of generalized body aches, chills, diarrhea, fever, and vomited a couple times. He states he had an illness similar 3 weeks ago but not as bad and it resolved and then this came on Saturday. He has taken tylenol and ibuprofen an hour ago which brought pain from a 10/10 to a 3/10.He states he ws seen the other day and had lab work done. Has been taking in plenty of fluids. 6 bottles of water and 2 Oj's today. documented in this encounter Miscellaneous Notes * Shemar FULLER - Mandeep Aguilar NP - 03/10/2025 9:15 PM CDT [id number] Viral Syndrome (Adult) A viral illness may cause many symptoms such as fever, muscle aches, and fatigue. Other symptoms depend on the part of the body that the virus affects. If it settles in your nose, throat, and lungs, it may cause cough, sore throat, congestion, runny nose, headache, earache, or even shortness of breath. If it settles in your stomach and intestinal tract, it may cause nausea, vomiting, cramping, and diarrhea. Usually, it causes generalized symptoms like aching all over, feeling tired, loss of energy, or loss of appetite. A viral illness often lasts anywhere from a few days to a few weeks. But sometimes it lasts longer.In some cases, a more serious infection can look like a viral syndrome in the first few days of theillness. You may need another exam and additional tests to know the difference. Watch for the warning signs listed below for when to get medical advice. Home care Follow these guidelines for taking care of yourself at home: ?? If symptoms are severe, rest at home for the first 2 to 3 days. ?? Stay away from cigarette smoke?both your smoke and the smoke from others. ?? You may use bczx-nxx-caieeel acetaminophen or ibuprofen for fever, muscle aching, and headache, unless another medicine was prescribed for this. Antibiotics aren't used to treat viral infections. If you have chronic liver or kidney disease or ever had a stomach ulcer or gastrointestinal bleeding, talk with your health care provider before using these medicines. No one younger than age 18 yearsand ill with a fever should take aspirin. It may cause severe disease or . ?? Your appetite may be poor, so a light diet is fine. Prevent dehydration by drinking 8 to 12 8-ounce glasses of fluids each day. This may include water, lemonade, juices like orange, apple, grape, and cranberry, clear fruit drinks, electrolyte replacement and sports drinks, and decaffeinated teasand coffee. If you've been diagnosed with a kidney disease, ask your provider how much and what types of fluids you should drink to prevent dehydration. If you have kidney disease, drinking too much fluid can cause it to build up in your body and be dangerous to your health. ?? Wwqo-wbz-gldzhpt remedies won't shorten the length of the illness. But they may be helpful for symptoms such as cough, sore throat, nasal and sinus congestion, or diarrhea. Don't use decongestantsif you have high blood pressure. ?? Follow-up care Follow up with your health care provider if you don't get better over the next week. Call 911 Call 911 if any of these occur: ?? Convulsion ?? Feeling weak, dizzy, or like you are going to faint ?? Chest pain, or more than mild shortness of breath When to get medical advice Contact your health care provider right away if any of these occur: ?? Cough with thick, yellow or green sputum (mucus) or blood in your sputum. ?? Chest pain, shortness of breath, wheezing, or trouble breathing. ?? Severe headache, or face, neck, or ear pain. ?? Severe, constant pain in the lower right side of your belly (abdominal). ?? Continued vomiting (can?t keep liquids down). ?? Frequent diarrhea (more than 5 times a day), or blood (red or black color) or mucus in diarrhea. ?? Feeling weak, dizzy, or like you are going to faint. ?? Extreme thirst. ?? Fever of 100.4??F (38??C) or higher, or as directed by your provider. ?? You think you have the flu or you test positive for COVID and are at risk for severe illness. There are medicines called antivirals that can help you. Last Reviewed Date: 2024 00:00:00 ?? [id number] [employer]. All rights reserved. This information is not intended as a substitute for professional medical care. Always follow your healthcare professional's instructions. documented in this encounter Plan of Treatment Not on file documented as of this encounter Procedures Procedure Name Priority Date/Time Associated Diagnosis Comments RESPIRATORY 4-PLEX STAT 03/10/2025 9: 14 PM CDT documented in this encounter Results * (ABNORMAL) Respiratory 4-Plex (03/10/2025 9:14 PM CDT) [facility] Influenza A, PCR Negative Negative 03/10/2025 10:14 PM CDT [facility] Influenza B, PCR Positive(A) Negative 03/10/2025 10:14 PM CDT [facility] RSV, PCR Negative Negative 03/10/2025 10:14 PM CDT [facility] SARS-CoV-2 PCR Negative Negative 03/10/2025 10:14 PM CDT [facility] Swab Nasopharyngeal structure / Unknown Non-blood Collection / Unknown 03/10/2025 9:14 PM CDT 03/10/2025 9:26 PM CDT us Mandeep Aguilar NP LAB MICROBIOLOGY - GENERAL ORD ERABLES Final Result [facility] [address] [place] [address] documented in this encounter Visit Diagnoses Diagnosis Viral syndrome- Primary Unspecified viral infection, in conditions classified elsewhere and of unspecified site documented in this encounter Additional Health Concerns Infection Onset Date Last Indicated Resolved Time Respiratory Rule-Out 03/10/2025 03/10/2025 025 8:14 PM PDT documented as of this encounter
--- OUTSIDE RECORDS SUMMARY | 2025-03-14 23:09 | XMS_ITS | Clinical Summary ---
Author Organization [facility] Address [address] [place] [address] Care Team Providers Care Cleaning Staff Supervisor Name Role Phone Nereyda Barrera DO Primary Care Provider Allergies Active Allergy Reactions Criticality Noted Date Comments Aripiprazole *Unknown,Seizures High 05/17/2016 Cats (Fur, Dander, Saliva) Wheezing 6 Medications polyethylene glycoL (MIRALAX) 17 gram/scoop powderIndications :Constipation, unspecified constipation type Mix 1 scoop (17 g) in liquid then take by mouth once daily. 238 g 4 Active sucralfate 1 gram tabletIndications :Chest pain with low risk for cardiac etiology Take 1 Tablet (1 g) by mouth four times daily before meals and at bedtime. 30 Tablet 5 Active fluticasone (50 mcg per actuation) nasal solution (FLONASE)Indicati ons:Acute rhinitis Inhale 2 Sprays in both nostrils once daily. 16 g 5 Active albuterol HFA 90 mcg/actuation inhalerIndication s:Mild intermittent asthma with exacerbation (HC) Inhale 2 Puffs by mouth every 4 hours if needed for Shortness Of Breath or Wheezing. 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 06/03/2012 Sleep disturbance 01/28/2012 Mixed receptive-expressive language disorder Attention deficit hyperactivity disorder (ADHD) 11/14/2007 Overview (05/22/2021): Attention Deficit Dis w Hyperactivity Created by Conversion Developmental coordination disorder 11/14/2007 Overview (05/22/2021): Developmental Disorder Coordination Resolved Problems Problem Noted Date Diagnosed Date Resolved Date Anxiety 12/31/2016 07/31/2021 Encounters Date Type Department Care Team Description 03/09/2025 3:25 PM CDT [place] [facility] [place] [address] [address] [facility] [facility] [place] [address] Mya Polo, RASHEED STD (sti/std testing) 03/09/2025 Travel 02/11/2025 9:00 AM CDT Office Visit [facility] [address] [place] [address] Lissy Matamoros PA Throat Problem (SOB, sore throat, runny nose, cough, and congestions, fatigue x 3 days. ) 02/11/2025 Travel 02/02/2025 8:05 PM CDT - 02/02/2025 9:47 PM CDT Emergency [facility] [address] [place] [address] Robert Ndiaye PA Chest pain with low risk for cardiac etiology (Primary Dx) Discharge Disposition: Home Self Care 02/02/2025 Travel 01/07/2025 Nurse Triage [facility] [address] [place] [address] Jannie Moraes, RASHEED Chest Pain/problem from Last 3 Months Immunizations Immunization Administration Dates Next Due DTaP 08/25/2004, 4,2003,08/31 HIB-HepB (Comvax) 08/25/2004,2003,08/31/20 03 HPV 9 (Gardasil 9) 05/30/2016,01/30/2016 Hepatitis B (Peds) 08/25/2004,2003, 003 Hib Conjugate, Unspecified 08/25/2004,2003 ,2003 Human Papilloma Virus Vaccine 2015 Inactivated Polio Vaccine 04/12/2004,2003, 2003 Influenza A (H1N1), Inactivated 11/30/2009 Influenza Virus, Unspecified 09/19/2005,10/03/20 04,08/25/2004 Influenza, IIV3 (Age 6-35 mos) 09/19/2005,2003,08/25/2004 Influenza, IIV3 (Age >=3 years) 08/28/2012,09/19,10/03/2004 Influenza, IIV4 09/21/2013 Influenza, IIV4 (=>6mos) MDV 08/10/2019,08/12/20 17 MENINGOCOCCAL VACCINE 2 VIAL 2MO-55YO (MENVEO) 07/26/2021 MMR 06/25/2008,07/26/2004 Meningococcal Vaccine (Menactra) 2015 Pneumococcal conj 13-Valent (Prevnar 13) 08/25/2004,01/03/2004 Pneumococcal conj 7-Valent (Prevnar 7) 1 ,01/03/2004,2003,08/31 Tdap 08/18/2022,2015 Varicella Vaccine 07/20/2015,07/26/2004 Family History Medical History Relation Name Comments Bipolar disorder No Family History Social History Tobacco Use Types Packs/Day Years Used Date Smoking Tobacco: Former Cigarettes 0.3 1.7 2 - 08/2024 Smokeless Tobacco: Never Alcohol Use Standard Drinks/Week Comments Yes 0 (1 standard drink = 0.6 oz pur e alcohol) family events PHQ-2 Answer Date Recorded PHQ-2 TOTAL SCORE 6 05/19/2024 Social Connections Answer Date Recorded Do you often feel lonely or isolated from those around you? 4 03/20/2024 Financial Resource Strain Answer Date R ecorded Difficulty of Paying Living Expenses 1 03/20/2024 Difficulty of Paying Living Expenses 2 03/20/2024 Food Insecurity Answer Date Recorded Do you worry your food will run out before you are able to buy more? 1 03/20/2024 Transportation Needs Answer Date Record ed Does lack of transportation keep you from medica l appointments? 1 03/20/2024 Does lack of transportation keep you from work, meetings or getting things that you need? 1 03/20/2024 Housing Stability Answer Date Recorded What is your housing situation today? 1 03/20/2024 Interpersonal Safety Answer Date Record ed Are you being hit, kicked, p ushed or yelled at (see row info)? No 02/02/2025 Interpersonal Safety Abuse 12 - 18 Not on file 02/02/2025 Interpersonal Safety Ambulatory Vulnerability No t on file 02/02/2025 Utilities Answer Date Recorded Do you have trouble paying f or utilities (for example, heat, electricity, water, phone)? 1 03/20/2024 Sex and Gender Information Value Date Recorded Sex Assigned at Not on file Legal Sex Male 5:42 AM [employer] Gender Identity Not on file Sexual Orientation Not on file Obstetrics History Last Filed Vital Signs Vital Sign Reading Time Taken Comments Blood Pressure 126/70 03/09/2025 3:11 PM CDT Pulse 88 03/09/2025 3:11 PM CDT Temperature 37.3 C (99.2 F) 02/11/2025 9:00 AM CDT Respiratory Rate 16 02/02/2025 7:46 PM CDT Oxygen Saturation 97% 02/11/2025 9:00 AM CDT Inhaled Oxygen Concentration - - Weight 90.3 kg (199 lb) 03/09/2025 3:11 PM CDT Height 186.7 cm (6' 1.5) 03/09/2025 3:11 PM CDT Body Mass Index 25.9 03/09/2025 3:11 PM CDT Plan of Treatment Health Maintenance Due Date Last Done Comments COVID-19 vaccine series (2023- season) 2024 Depression screening for age 12+ 05/19/2025 05/19/2024, 03/04/2024, 03/04/2024, Additional history exists Influenza Vaccine (Season Ended) 2025 08/10/2019, 08/12/2017, 09/21/2013, Additional history exists BMI (ht and wt on same day) for age 18+ 03/09/2026 03/09/2025, 05/19/2024, 03/20/2024, Additional history exists Tetanus booster 08/18/2032 08/18/2022, 2015 Pneumococcal series for age 6-49 Completed 08/25/2004, 08/25/2004, 01/03/2004, Additional history exists HPV series for age 9-26 Completed 05/30/20 16, 01/30/2016, 2015 Meningococcal series for age 11-21 Completed 2020, 2015 Tdap Completed 08/18/2022, 2015 HIV for age 15-65 Completed 08/17/2024, , 05/15/2022, Additional history exists Hepatitis C screening for ag e 18-79 Completed 08/17/2024, 05/06/2023 Procedures Procedure Name Priority Date/Time Associated Diagnosis Comments URINALYSIS MACROSCOPIC - [facility] ONLY POC DIP (QUEST) Routine 03/09/2025 3:24 PM CDT Screen for STD (sexually transmitted disease) TRICHOMONAS AMPLIFIED PROBE Routine 03/09/2025 3:21 PM CDT Screen for STD (sexually transmitted disease) GC CHLAMYDIA TRACH PROBE Routine 03/09/2025 3:21 PM CDT Screen for STD (sexually transmitted disease) THROAT RAPID STREP ONLY CLINIC Routine 02/11/2025 9:16 AM CDT Nasopharyngitis acute COVID-19 MOLECULAR Routine 02/11/2025 9: 14 AM CDT Nasopharyngitis acute INFLUENZA A/B PCR Routine 02/11/2025 9:1 4 AM CDT Nasopharyngitis acute STREP A PCR Routine 02/11/2025 9:13 AM CDT Nasopharyngitis acute XR CHEST 2 VIEWS PA AND LATERAL STAT 02/02/2025 9:07 PM CDT CBC WITH AUTO DIFFERENTIAL STAT 02/02/2025 9:02 PM CDT CBC WITH AUTO DIFFERENTIAL STAT 02/02/2025 9:02 PM CDT BASIC METABOLIC PANEL STAT 02/02/2025 9:02 PM CDT TROPONIN T (HS) ACUTE W/2HR REFLEX STAT 02/02/2025 9:02 PM CDT EKG 12 LEAD STAT 02/02/2025 7:58 PM CDT HIV 1/2 ANTIGEN/ANTIBODY FOURTH GENERATION W/RFL (QUEST) Routine 08/17/2024 9:38 AM CDT Screening examination for STD (sexually transmitted disease) ANTI HCV Routine 08/17/2024 9:38 AM CDT Screening examination for STD (sexually transmitted disease) from Last 3 Months or Most Recently Relevant to Health Maintenance Results * (ABNORMAL) POCT Urinalysis Dipstick Only [[id number]] (03/09/2025 3:24 PM CDT) PH 7.0 5.0 - 8.0 [facility] SPECIFIC GRAVITY 1.020 1.001 - 1.035 [facility] GLUCOSE NEGATIVE NEGATIVE [facility] BILIRUBIN NEGATIVE NEGATIVE [facility] KETONES TRACE(A) NEGATIVE [facility] OCCULT BLOOD NEGATIVE NEGATIVE [facility] PROTEIN TRACE(A) NEGATIVE [facility] NITRITE NEGATIVE NEGATIVE [facility] LEUKOCYTE ESTERASE NEGATIVE NEGATIVE [facility] Urine URINE SPECIMEN / Unknown 03/09/2025 3:24 PM CDT 03/09/2025 3:26 PM CDT Mya Polo [employer] URINE Final Res ult Performing Organization Address City/[facility]/ZIP Co de Phone Number [facility] [address] [place] [address], [facility] [address] [place] [address] * TRICHOMONAS AMPLIFIED PROBE (03/09/2025 3:21 PM CDT) TRICHOMONAS AMPLIFIED PROBE Negative 03/12/2025 12:05 PM CDT [facility] Other URINE SPECIMEN / Unknown Non-Blood / Unknown 03/09/2025 3:21 PM CDT 03/09/2025 3:21 PM CDT Mya Polo [employer]ER MICROBIOLOGY Final Res ult [facility] [address] [place] [address], * GC CHLAMYDIA TRACH PROBE (03/09/2025 3:21 PM CDT) CHLAMYDIA PROBE Negative 2:36 PM CDT [facility] N GONORRHOEAE PROBE Negative 03/10/2025 2:36 PM CDT [facility] Other URINE SPECIMEN / Unknown Non-Blood / Unknown 03/09/2025 3:21 PM CDT 03/09/2025 3:21 PM CDT Mya Polo [employer]ER MICROBIOLOGY Final Res ult [facility] [address] [place] [address], [place] * POCT Throat Rapid Strep (02/11/2025 9:16 AM CDT) POC, GROUP A STREP NOT DETECTED NOT DETECTED [facility] [place] Comment: The [employer] [employer] recommends that a throat culture be performed if a rapid group A streptococcus assay yields a negative result. [facility] recommends Streptococcus, Group A culture. Throat SPECIMEN FROM THROAT / Unknown 02/11/2025 9:16 AM CDT 02/11/2025 9:16 AM CDT Lissy Matamoros PA MICROBIOLOGY Final Result Performing Organization Address City/[facility]/ZIP Co de Phone Number [facility] [address] [place] [address], [facility] [address] [place] [address] * COVID-19 MOLECULAR (02/11/2025 9:14 AM CDT) Pathologist [facility] COVID 19 [facility] MOLECULAR Negative Negative 02/11/2025 11:07 PM CDT [facility]- N[facility]AL LABORAT[facility] TESTING LABORATORY [facility] 02/11/2025 11:07 PM CDT [facility] Comment:Specimen submitted t o [facility] Laboratory for testing. Other OROPHARYNGEAL / Unknown Non-Blood / Unknown 02/11/2025 9:14 AM CDT 02/11/2025 9:14 AM CDT Narrative [facility] - 02/11/2025 11:07 PM CDT All PCR tests are subject to false negative result due to variability in viral load and collection technique. A negative result does not rule out a SARS-CoV-2 infection. Clinical correlation required. Lissy Barrsd PA MICROBIOLOGY Final Result Performing Organization Address [facility] Co de Phone Number [facility] [address] [address], [place] * INFLUENZA A/B PCR (02/11/2025 9:14 AM CDT) INFLUENZA A PCR Negative 02/11/2025 11:07 PM CDT [facility] INFLUENZA B PCR Negative 02/11/2025 11:07 PM CDT [facility] Other OROPHARYNGEAL / Unknown Non-Blood / Unknown 02/11/2025 9:14 AM CDT 02/11/2025 9:14 AM CDT Lissy Barrsd PA MICROBIOLOGY Final Result Performing Organization Address [facility] Co de Phone Number [facility] [address] [address], [place] * STREP A PCR (02/11/2025 9:13 AM CDT) GROUP A STREP Negative 02/11/2025 4:01 PM CDT [facility] TRA [facility] Throat SPECIMEN FROM THROAT / Unknown Non-Blood / Unknown 02/11/2025 9:13 AM CDT 02/11/2025 9:43 AM CDT Lissy Minaya Saturnino PA MICROBIOLOGY Final Result Performing Organization Address [facility] Co de Phone Number [facility] [address] [address], [place] * XR CHEST 2 VIEWS PA AND LATERAL (02/02/2025 9:07 PM CDT) Anatomical Region Laterality Modality CHEST, THORAX, Lung, HEART Compu raquel Radiography 02/02/2025 9:07 PM CDT Impressions 02/02/2025 9:16 PM CDT Negative chest. Narrative 02/02/2025 9:16 PM CDT For Patients: As a result of the Cures Act, medical imaging exams and procedure reports are released immediately into your electronic medical record. You may view this report before your referring provider. If you have questions, please contact your health care provider. EXAM: XR CHEST 2 VIEWS PA AND LATERAL LOCATION: [facility] DATE: 02/02/2025 INDICATION: Chest pain COMPARISON: 08/26/2023, 11/27/2022 Procedure Note Hayden Jalloh MD - 02/02/2025 For Patients: As a result of the s Act, medical imagingexams and procedure reports are released immediately into your electronicmedical record. You may view this report before your referring provider.If you have questions, please contact your health care provider. EXAM: XR CHEST 2 VIEWS PA AND LATERAL LOCATION: [facility] DATE: 02/02/2025 INDICATION: Chest pain COMPARISON: 08/26/2023, 11/27/2022 IMPRESSION: Negative chest. Robert AGUIRRE GENERAL IMAGING Final R esult * TROPONIN T (HS) ACUTE W/2HR REFLEX (02/02/2025 9:02 PM CDT) TROPONIN T HS <6 6-15 ng/L ng/L 02/02/2025 9:25 PM CDT [facility] Blood BLOOD SPECIMEN / Unknown PIV Device / Unknown 02/02/2025 9:02 PM CDT 02/02/2025 9:05 PM CDT Narrative [facility] - 02/02/2025 9:25 PM CDT hs-cTnT (Elecsys Troponin T Gen 5) concentration (s) above the sex-specific 99th percentile (16 ng/L or greater for males or 11 ng/L or greater for females) are indicative of myocardial injury. If initial hs-cTnT <=100 ng/L at presentation, a 0h/2h ABSOLUTE (ng/L) delta change (rising or falling) of >=10 ng/L suggests a significant change, whereas a 0h/2h delta change <=3 ng/L suggests no significant change. If initial hs-cTnT >100 ng/L at presentation, a 0h/2h/ RELATIVE (percent, %) delta change of 20% is suggested to distinguish patients with acute vs. chronic myocardial injury. There are multiple etiologies that can cause hs-cTnT increases above the 99th percentile (myocardial injury) other than acute myocardial infarction. Clinical context and careful clinical evaluation are critical for diagnosis and risk-stratification. The diagnosis of acute myocardial infarction requires a rising and/or falling pattern in hs-cTnT concentrations with at least one value above the sex-specific 99th percentile PLUS at least one of the following clinical criteria: ischemic symptoms, new or presumed new significant ST-T wave changes or new LBBB, development of pathological Q waves, imaging evidence of new loss of viable myocardium or new regional wall motion abnormality, or identification of intracoronary atherothrombosis or an acute angiographic culprit on coronary angiography. In appropriate low-risk patients with a non-ischemic electrocardiogram without active chest pain with a symptom onset >3-hours without recurrence, a single initial hs-cTnT<6 ng/L identifies patient with a very low risk in emergency department patient population. Robert AGUIRRE CHEMISTRY Final R esult [facility] [address] [place] [address], * CBC WITH AUTO DIFFERENTIAL (02/02/2025 9:02 PM CDT) Pathologist [facility] WHITE BLOOD COUNT 8.8 4.5 - 11.0 thou/cu mm 02/02/2025 9:08 PM CDT [facility] RED BLOOD COUNT 5.18 4.30 - 5.90 mil/cu mm 02/02/2025 9:08 PM CDT [facility] HEMOGLOBIN 16.1 13.5 - 17.5 g/dL 02/02/2025 9:08 PM CDT [facility] HEMATOCRIT 46.1 37.0 - 53.0 % 02/02/2025 9:08 PM CDT [facility] MCV 89 80 - 100 fL 02/02/2025 9:08 PM CDT [facility] MCH 31.1 26.0 - 34.0 pg 02/02/2025 9:08 PM CDT [facility] MCHC 34.9 32.0 - 36.0 g/dL 02/02/2025 9:08 PM CDT [facility] RDW 11.7 11.5 - 15.5 % 02/02/2025 9:08 PM CDT [facility] PLATELET COUNT 284 140 - 440 thou/cu mm 02/02/2025 9:08 PM CDT [facility] MPV 8.9 6.5 - 11.0 fL 02/02/2025 9:08 PM CDT [facility] NRBC 0.0 % 02/02/2025 9:08 PM CDT [facility] ABS NRBC 0.0 thou /cu mm 02/02/2025 9:08 PM CDT [facility] % NEUT 57.2 % 02/02/2025 9:08 PM CDT [facility] % LYMPH 31.8 % 02/02/2025 9:08 PM CDT [facility] % MONO 8.5 % 02/02/2025 9:08 PM CDT [facility] % EOS 1.6 % 02/02/2025 9:08 PM CDT [facility] % BASO 0.6 % 02/02/2025 9:08 PM CDT [facility] % IMMATURE GRAN (METAS,MYELOS,AZ OS) 0.3 % 02/02/2025 9:08 PM CDT [facility] ABSOLUTE NEUTROPHILS 5.0 1.7 - 7.0 thou/cu mm 02/02/2025 9:08 PM CDT [facility] ABSOLUTE LYMPHOCYTES 2.8 0.9 - 2.9 thou/cu mm 02/02/2025 9:08 PM CDT [facility] ABSOLUTE MONOCYTES 0.7 <0.9 thou/cu mm 02/02/2025 9:08 PM CDT [facility] ABSOLUTE EOSINOPHILS 0.1 <0.5 thou/cu mm 02/02/2025 9:08 PM CDT [facility] ABSOLUTE BASOPHILS 0.1 <0.3 thou/cu mm 02/02/2025 9:08 PM CDT [facility] ABSOLUTE IMMATURE GRANULOCYTES(MET ,MYELOS,PROS) 0.0 <0.3 thou/cu mm 02/02/2025 9:08 PM CDT [facility] Blood BLOOD SPECIMEN / Unknown PIV Device / Unknown 02/02/2025 9:02 PM CDT 02/02/2025 9:05 PM CDT Robert AGUIRRE HEMATOLOGY Final R esult [facility] [place] [address], * BASIC METABOLIC PANEL (02/02/2025 9:02 PM CDT) SODIUM 137 136 - 145 mmol/L 02/02/2025 9:25 PM CDT [facility] POTASSIUM 3.6 3.5 - 5.1 mmol/L 02/02/2025 9:25 PM CDT [facility] CHLORIDE 101 98 - 107 mmol/L 02/02/2025 9:25 PM CDT [facility] CO2,TOTAL 25 22 - 29 mmol/L 02/02/2025 9:25 PM CDT [facility] ANION GAP 11 5 - 18 02/02/2025 9:25 PM CDT [facility] GLUCOSE 86 70 - 99 mg/dL 02/02/2025 9:25 PM CDT [facility] CALCIUM 9.8 8.8 - 10.4 mg/dL 02/02/2025 9:25 PM CDT [facility] Comment: Reference ranges for this test were updated on 09/15/2024 to reflect our healthy population more accurately. Reference range changes are not retroactively applied to results, but previous results using the same methodology can be interpreted in the context of the new reference range. BUN 14 6 - 20 mg/dL 02/02/2025 9:25 PM CDT [facility] CREATININE 0.77 0.70 - 1.20 mg/dL 02/02/2025 9:25 PM CDT [facility] BUN/CREAT RATIO 18 10 - 20 9:25 PM CDT [facility] eGFR >90 >90 mL/min/1.7 3m2 02/02/2025 9:25 PM CDT [facility] Comment:As of 2022, eG FR is calculated by the CKD-EPI creatinine equation without race adjustment. eGFR can be influenced by muscle mass, exercise, and diet. The reported eGFR is an estimation only and is only applicable if the renal function is stable. Blood BLOOD SPECIMEN / Unknown PIV Device / Unknown 02/02/2025 9:02 PM CDT 02/02/2025 9:05 PM CDT Robert Ajit AGUIRRE CHEMISTRY Final R esult [facility] [address] [place] [address], [place] [phone] * EKG 12 LEAD (02/02/2025 7:58 PM CDT) Interpretation Normal sinus rhythm with sinus arrhythmia Normal ECG When compared with ECG of 02-Apr-2024 21:49, No significant change was found BEYOND NOW Ventricular Rate 61 BPM BEYOND NOW Atrial Rate 61 BPM BEYOND NOW P-R Interval 112 ms BEYOND NOW QRS Duration 110 ms BEYOND NOW QT 388 ms BEYOND NOW QTc 390 ms BEYOND NOW P [place] 69 degrees BEYOND NOW R [place] 74 degrees BEYOND NOW T [place] 60 degrees BEYOND NOW 02/02/2025 7:58 PM CDT 02/02/2025 10:16 PM CDT Narrative [facility] - 02/02/2025 10:16 PM CDT Test Indication: CHEST PAIN Olivier Ndiaye MD EKG ORD Final Resu lt BEY[facility] NOW [place], [place] * HIV 1/2 AG/AB 4TH GEN W/RFL (QUEST) (08/17/2024 9:38 AM CDT) Pathologist [facility] HIV AG/AB, 4TH GEN NON-REACT EARL NON-REACT EARL [facility] Comment: HIV-1 antigen and HIV-1/HIV-2 antibodies were not detected. There is no laboratory evidence of HIV infection. PLEASE NOTE: This information has been disclosed to you from records whose confidentiality may be protected by state law. If your state requires such protection, then the state law prohibits you from making any further disclosure of the information without the specific written consent of the person to whom it pertains, or as otherwise permitted by law. A general authorization for the release of medical or other information is NOT sufficient for this purpose. For additional information please refer to http://education.Health As We Age.LittleLives/faq/FMM886 (This link is being provided for informational/ educational purposes only.) The performance of this assay has not been clinically validated in patients less than 2 years old. Blood BLOOD SPECIMEN / Unknown 08/17/2024 9:38 AM CDT 08/17/2024 9:40 AM CDT Narrative [facility] - 08/19/2024 3:19 AM CDT FASTING:UNKNOWN FASTING: UNKNOWN Jannie Moraes NP SEND OUTS Final Result Performing Organization Address [facility] Co de Phone Number [employer] [facility] [address] [address], [facility] [address] [place] [address] * ANTI HCV (08/17/2024 9:38 AM CDT) HEPATITIS C ANTIBODY NON-REACTI VE NON-REACT EARL [facility] Comment: HCV antibody was non-reactive. There is no laboratory evidence of HCV infection. In most cases, no further action is required. However, if recent HCV exposure is suspected, a test for HCV RNA (test code 55222) is suggested. For additional information please refer to http://education.[employer]/faq/EEC27d5 (This link is being provided for informational/ educational purposes only.) Blood BLOOD SPECIMEN / Unknown 08/17/2024 9:38 AM CDT 08/17/2024 9:40 AM CDT Narrative [facility] - 08/19/2024 3:19 AM CDT FASTING:UNKNOWN FASTING: UNKNOWN us Jannie Moraes NP SEND OUTS Final Result Performing Organization Address [facility] Co de Phone Number [employer] [facility] [address] [facility] [address], [place] [phone] [facility] [address] [place] [address] from Last 3 Months or Most Recently Relevant to Health Maintenance Insurance MEDICA CHOICE Care Teams Cleaning Staff Supervisor Relationship Specialty Start Date End Date Nereyda Barrera DO [address] [facility] [place] [address] PCP - General Family Practice 09/27/22
--- OUTSIDE RECORDS SUMMARY | 2025-03-14 23:09 | XMS_ITS | Clinical Summary ---
Author Organization [facility] Address [address] [place] [address] Phone Care Team Providers Care Facility Specialist Name Role Phone Unavailable Primary Care Provider Unavailabl e Allergies Active Allergy Reactions Criticality Noted Date Comments Aripiprazole Convulsions 06/30/2016 Cats Wheezing 06/30/2016 Medications GuanFACINE HCl ER (INTUNIV) 2 MG TABLET SR 24 HR Take 2 mg by mouth two times a day. Active lamoTRIgine (LAMICTAL) 200 MG tablet Take 200 mg by mouth one time a day. Active OLANZapine (ZYPREXA) 10 MG tablet Take 10 mg by mouth at bedtime. Active dextroamphetamine (DEXEDRINE) 10 MG tablet Take 10 mg by mouth one time a day. Take 30 minutes before meals. Active GuanFACINE HCl ER 2 MG TABLET SR 24 HR Take 2 mg by mouth. Active BECLOMETHASONE DIPROPIONATE IN Inhale into the lungs. Active albuterol HFA (PROAIR HFA, VENTOLIN HFA) 108 (90 BASE) MCG/ACT inhalation aerosol Shake before using. Two puffs every 4-6 hours as needed for cough, shortness of breath and wheezing. Use with spacer. 1 Inhaler 6 Active predniSONE (DELTASONE) 20 MG tablet Take with food. One tablet by mouth twice daily for 5 days 10 Tab 6 Active Social History Tobacco Use Types Packs/Day Years Used Date Smoking Tobacco: Never Assessed Sex and Gender Information Value Date Recorded Sex Assigned at Not on file Legal Sex Male 8:00 PM CDT Gender Identity Not on file Sexual Orientation Not on file Last Filed Vital Signs Vital Sign Reading Time Taken Comments Blood Pressure - - Pulse 113 06/30/2016 8:08 PM CDT Temperature 36.7 C (98.1 F) 06/30/2016 8:08 PM CDT Respiratory Rate 24 06/30/2016 8:08 PM CDT Oxygen Saturation 97% 06/30/2016 10:42 PM CDT Inhaled Oxygen Concentration - - Weight 70.3 kg (155 lb) 06/30/2016 8:08 PM CDT Height - - Body Mass Index - - Plan of Treatment Not on file
--- OUTSIDE RECORDS SUMMARY | 2025-03-14 23:09 | XMS_ITS | Encounter Summary ---
Author Organization [facility] Address [address] [place] [address]. [place] [address] Care Team Providers Care Data Warehouse Manager Name Role Phone Alicia Magaña Primary Care Provider [phone] Preethi Sutherland MD Unavailable + Vanesa Valentine GC Unavailable [phone] Martha Cavanaugh MD Unavailable Jose Brunner MD Unavailable No Ref-Primary, Physician Primary Care Provider Encounter Details Date Type Department Care Team (Late st Contact Info) Description 08/16/2016 Records - [facility] CONVERSION Scan, Non-Provider Social History Tobacco Use Types Packs/Day Years Used Date Smoking Tobacco: Never Alcohol Use Standard Drinks/Week Comments No 0 (1 standard drink = 0.6 oz pur e alcohol) Sex and Gender Information Value Date Recorded Sex Assigned at Not on file 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 [address] [place] [address] [place] [address] [id number] Referring Physician 01/26/16 Jose Brunner MD [address] [place] [id number] Assigned PCP 04/26/21 07/02/24 documented as of this encounter
--- OUTSIDE RECORDS SUMMARY | 2025-03-14 23:09 | XMS_ITS | Encounter Summary ---
Author Organization [facility] Address [address] [place] [address]. [place] [address] Care Team Providers Care Pile Driving Supervisor Name Role Phone Alicia Magaña Primary Care Provider [phone] Preethi Sutherland MD Unavailable + Martha Cavanaugh MD Unavailable [phone] Jose Brunner MD Unavailable No Ref-Primary, Physician Primary Care Provider Reason for Visit * Reason Comments Pharyngitis Encounter Details Date Type Department Care Team (Latest Contact Info) Description 05/16/2021 Office Visit - [address] [phone] Jose Brunner MD [address] [place] [address] [id number] Acute pharyngitis, unspecified etiology; Nasal congestion; History of asthma Social History Tobacco Use Types Packs/Day Years Used Date Smoking Tobacco: Never Smokeless Tobacco: Current Comments:exposure Alcohol Use Standard Drinks/Week Comments Not Asked 0 (1 standard drink = 0.6 oz pur e alcohol) PHQ-2 Answer Date Recorded PHQ-2 Score 0 05/16/2021 Sex and Gender Information Value Date Recorded Sex Assigned at Not on file 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 male who is being evaluated via a billable telephone visit. What phone number would you like to be contacted at? [phone] How would you like to obtain your AVS? AVS Preference: Mail a copy. Assessment & Plan Acute pharyngitis, unspecified etiology Nasal congestion History of asthma - Rapid Strep A Screen-Throat - Symptomatic COVID-19 Virus (CORONAVIRUS) PCR Reviewed possible etiology. Due to the pandemic, rule out covid 19. Patient is concerned about strep throat, this was also ordered. Will follow results. In the mean time we discussed supportive care. Consider acetaminophen or ibuprofen for sore throat,warm salt gargles, vaporizer, throat lozenges. If his symptoms are not improved in the next two weeks, will call to be seen in person. Encouraged to schedule his covid 19 vaccination. Follow Up Return in about 2 weeks (around 05/30/2021) for Recheck. Jose Brunner MD Subjective Spencer Preston is 15 y.o. male who calls with concerns of sore throat, nasal congestion, unable to breath last night but is better now. His sore throat started yesterday. Yesterday he was so stuffy he was finding it hard to breath, but does not find that anymore. He denies cough. The nasal drainageis clear. No fever. No wheezing. He says he has not had as asthma attack in a long time. He works at [employer], could not work today. He has not has his covid 19 vaccination. Denies smoking. Is worried about strep throat. Objective Vitals: No vitals were obtained today due to virtual visit. Phone call duration: 8 minutes documented in this encounter Plan of Treatment Not on file documented as of this encounter Visit Diagnoses Diagnosis Acute pharyngitis, unspecified etiology Nasal congestion Other diseases of nasal cavity and sinuses History of asthma Personal history of other diseases of respiratory system documented in this encounter Additional Health Concerns Assessment Noted Time PHQ-9 Depression Total Score: 3 05/20/20 21 8:48 PM CDT documented as of this encounter Care Teams Pile Driving Supervisor Relationship Specialty Start Date End Date Alicia Magaña PCP - General Family Practice 06/01/14 07/29/24 No Ref-Primary, Physician PCP - General 07/30/24 Preethi Sutherland MD Pediatrics 01/04/16 Martha Cavanaugh MD [address] [id number] Referring Physician 01/26/16 Jose Brunner MD [address] [place] [id number] Assigned PCP 04/26/21 07/02/24 documented as of this encounter
--- OUTSIDE RECORDS SUMMARY | 2025-03-14 23:09 | XMS_ITS | Encounter Summary ---
Author Organization [facility] Address [address] [place] [address] Care Team Providers Care Pattern Hanger Name Role Phone Unavailable Primary Care Provider Unavailabl e Encounter Details Date Type Department Care Team (Latest Contact Info) Description 03/10/2025 Travel Social History Tobacco Use Types Packs/Day Years [...] filedocumented in this encounter Additional Health Concerns Infection Onset Date Last Indicated Resolved Time Respiratory Rule-Out 03/10/2025 03/10/2025 025 8:14 PM PDT Influenza 03/10/2025 03/10/2025 documented as of this encounter
--- OUTSIDE RECORDS SUMMARY | 2025-03-14 23:09 | XMS_ITS | Data Portability ---
Author Organization [facility], [facility] Address [address] [facility] [address] [place] [id number] Assessment No assessment recorded. Plan of Treatment Reminders Order Date Submit Date Provider Last Modified By Organization Details Last Modified Time Details Appointments None record ed. Lab None record ed. Referral None record ed. Procedures None record ed. Surgeries None record ed. Imaging None record ed. Medication Orders None record ed. Patient TargetsNo targets recorded. Patient InstructionsNo instructions recorded. Reason for Referral None Reported. Procedures Surgical History Date Name Laterality Status Provider Name and Address Organization Details Recorded Time 3 [facility] Rapid 5 or 10 panel Template completed PENNY Manley [employer] 12/05/2022 15:14:07 Imaging Results None recorded. Procedure Notes None recorded. Medical Equipment None Reported. Medications Name Sig Start Date Stop Date Status Note LastModified by Organization Details LastModified Time prednisone 20 mg tablet TAKE 2 TABLETS BY MOUTH ONCE DAILY FOR 4 DAYS. active Not Available Not Available No t Available fexofenadine 180 mg tablet Take 1 tablet by mouth once daily. Do not crush or chew. active Not Available Not Available No t Available benzonatate 100 mg capsule TAKE 1 CAPSULE BY MOUTH THREE TIMES DAILY IF NEEDED FOR COUGH active Not Available Not Available No t Available fluticasone propionate 50 mcg/actuation nasal spray,suspens ion Inhale 2 Sprays to both nostrils once daily. active Not Available Not Available No t Available amoxicillin 875 mg-potassium clavulanate 125 mg tablet Take 1 Tablet by mouth 2 times daily with meals for 10 days. active Not Available Not Available No t Available bupropion HCl XL 150 mg 24 hr tablet, extended release Take 1 Tablet (150 mg) by mouth every morning. active Not Available Not Available No t Available Xopenex HFA 45 mcg/actuation aerosol inhaler INHALE 1-2 PUFFS BY MOUTH EVERY 4 HOURS IF NEEDED FOR SHORTNESS OF BREATH OR WHEEZING active Not Available Not Available No t Available ID NOW COVID-19 Test Kit TEST DIRECTED TODAY active Not Available Not Available No t Available Vitals None Recorded Social History None recorded. Functional Status None recorded. Mental Status None recorded. Family History Nothing Reported. Medical History No medical history recorded. Past Encounters Encounter ID Performer Location Encounter Start Date Encounter Closed Date Diagnosis/Indication Diagnosis SNOMED-CT Code Diagnosis ICD10 Code Diagnosis Note [id number] [facility] [facility] [address] [place] [phone] 04/17/2022 09:43:33 04/17/2022 11:16:50 [id number] MOUNIKA ATILIO, RASHEED [address] [address] [place] [phone] 12/05/2022 14:20:00 12/05/2022 15:44:52 History and physical examination, pre-employment [id number] Z02.1 Health Concerns Section Related Observation LastModified by Organization Detai ls LastModified Time None Recorded Concern Status LastModified by Organization Details LastModified Time None Recorded Advance Directives Directive None Recorded Payers Encounter Date Sequence Insurance Name Policy Number Policy Dodd Covered Member ID Dodd Member ID Guarantor Name 12/05/2022 OC-ESCREEN Generic Employer [id number] Spencer Preston
--- OUTSIDE RECORDS SUMMARY | 2025-03-14 23:09 | XMS_ITS | Clinical Summary ---
Author Organization [facility] Address [address] [place] [address] Care Team Providers Care Mill Oiler Name Role Phone Unavailable Primary Care Provider Unavailabl e Source Comments PLEASE NOTE, if this patient is a minor, it may be UNLAWFUL to discuss sensitive information that is contained in these records (such as FAMILY PLANNING, MENTAL HEALTH or SUBSTANCE ABUSE) with the minor patient's parent or other person without the patient's specific authorization.[facility] Allergies Active Allergy Reactions Criticality Noted Date Comments Aripiprazole Anaphylaxis High 06/01/2014 Other Reaction(s): *Unknown, Angioedema (Reselect Reaction), Other (See Comments), Seizures Muscle spasms Cats 06/30/2016 Other Reaction(s): Wheezing Medications albuterol HFA 90 mcg/actuation inhaler Inhale 2 Puffs into the lungs every 4 (four) hours as needed 02/11/2025 Active fluticasone (FLONASE) 50 mcg/actuation nasal spray Place 2 Sprays into the nostril(s) daily 02/11/2025 Active polyethylene glycol, PEG, 3350 (GLYCOLAX) 17 gram/dose powder Take 17 g by mouth daily 11/05/2022 Active sucralfate (CARAFATE) 1 gram tablet Take 1 g by mouth 4 (four) times a day 02/02/2025 Active prochlorperazine (COMPAZINE) 10 mg tabletIndication s:Viral syndrome Take 1 Tablet by mouth every 6 (six) hours as needed for nausea 10 Tablet 03/10/2025 Active ketorolac (TORADOL) 10 mg tabletIndication s:Viral syndrome Take 1 Tablet by mouth every 6 (six) hours as needed for pain 20 Tablet 03/10/2025 Active Encounters Date Type Department Care Team Description 03/10/2025 8:51 PM CDT - 03/10/2025 9:25 PM CDT Emergency [facility] [address] [phone] Mandeep Aguilar, RASHEED Viral syndrome (Primary Dx) Discharge Disposition: Home or Self Care 03/10/2025 Travel from Last 3 Months Social History Tobacco Use Types Packs/Day Years [...] Mass Index 26.12 03/10/2025 8:56 PM CDT Plan of Treatment Health Maintenance Due Date Last Done Comments Anxiety Screening 2003 Lipid Screening 2003 Tobacco Screening 2003 Nth-GMYQN-[id number] ( season) 2024 Imm-Influenza (#1) 2024 08/10/2019, 1 , 09/21/2013, Additional history exists Alcohol and Drug Screen 11/11/2024 Depression Annual Screen 11/11/2024 Diabetes Screening 02/02/2026 02/02/2025, 0 02/02/2025, 11/30/2021 Hypertension Screening (#1) 03/10/2026 Imm-DTaP/Tdap/Td (7 - Td or Tdap) 08/18/2032 08/18/2022, 2015, 08/25/2004, Additional history exists Imm-Hepatitis B Completed 08/25/2004, 08/11, 2003, Additional history exists Imm-Varicella Completed 07/20/2015, 07/26/2004 Imm-HPV Completed 05/30/2016, 01/10, 2015 HIV Screening Completed 05/06/2023, 03/2022, 07/26/2021 Hepatitis C Screening Completed 08/17/2024, 024 Imm-Hepatitis A Aged Out No longer el igible based on patient's age to complete this topic Procedures Procedure Name Priority Date/Time Associated Diagnosis Comments RESPIRATORY 4-PLEX STAT 03/10/2025 9: 14 PM CDT from Last 3 Months Results * (ABNORMAL) Respiratory 4-Plex (03/10/2025 9:14 PM CDT) Influenza A, PCR Negative Negative 03/10/2025 10:[address] [facility] Influenza B, PCR Positive(A) Negative 03/10/2025 10:[address] [facility] RSV, PCR Negative Negative 03/10/2025 10:[address] [facility] SARS-CoV-2 PCR Negative Negative 03/10/2025 10:[address] [facility] Swab Nasopharyngeal structure / Unknown Non-blood Collection / Unknown 03/10/2025 9:14 PM CDT 03/10/2025 9:26 PM CDT us Mandeep Aguilar [facility] MICROBIOLOGY - GENERAL ORD ERABLES Final Result [facility] [address] [place] [address] from Last 3 Months Additional Health Concerns Infection Onset Date Last Indicated Influenza 03/10/2025 03/10/2025
--- OUTSIDE RECORDS SUMMARY | 2025-03-14 23:09 | XMS_ITS | Clinical Summary ---
Author Organization [facility] Address [address] [place] [address]. [place] [address] Care Team Providers Care Designer Name Role Phone Preethi Sutherland MD Unavailable + Martha Cavanaugh MD Unavailable No Ref-Primary, Physician Primary Care Provider Allergies Active Allergy Reactions Criticality Noted Date Comments Aripiprazole Other (See Comments) 06/01/2014 Muscle spasms Medications Montelukast Sodium (SINGULAIR PO) Activ e traZODone (DESYREL) 100 MG tablet Take 1 tablet (100 mg) by mouth At Bedtime 20 tablet 8 Active Additional Information Patient not taking.Reported on 09/05/2023 lurasidone (LATUDA) 80 MG TABS tablet Take 1 tablet (80 mg) by mouth daily 20 tablet 8 Active Additional Information Patient not taking.Reported on 09/05/2023 metoclopramide (REGLAN) 10 MG tablet Take 1 tablet (10 mg) by mouth 3 times daily as needed (migraine or nausea) 30 tablet 1 1 Active Additional Information Patient not taking.Reported on 09/05/2023 amoxicillin (AMOXIL) 875 MG tablet Take 1 Tablet (875 mg) by mouth two times daily for 7 days.* 3 Active benzonatate (TESSALON) 200 MG capsuleIndicati ons:Viral URI with cough Take 1 capsule (200 mg) by mouth 3 times daily as needed for cough 30 capsule 3 Active Active Problems Problem Noted Date Diagnosed Date GONZALEZ (generalized anxiety disorder) 07/31/2021 Adjustment disorder with mix ed disturbance of emotions and conduct 05/22/2021 Overview (10/15/2021): Created by Conversion Created by Conversion Childhood asthma, unspecifie d asthma severity, uncomplicated 05/22/2021 Persistent disorder of initiating or maintaining sleep 05/22/2021 Overview (10/15/2021): Created by Conversion Created by Conversion Anxiety 12/31/2016 Vitamin D deficiency 12/31/2016 Behavior problem in child 02/03/2016 Ear anomaly, 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 Developmental delay 02/03/2016 Speech articulation disorder 06/03/2012 Sleep disturbance 01/28/2012 Mixed receptive-expressive language disorder Attention deficit hyperactivity disorder (ADHD) 11/14/2007 Overview (10/15/2021): Created by Conversion Attention Deficit Dis w Hyperactivity Created by Conversion Developmental coordination disorder 11/14/2007 Overview (10/15/2021): Developmental Disorder Coordination Immunizations Name Administration Dates Next Due DTaP, Unspecified 08/25/2004, 4,2003,08/31 Flu, Unspecified 09/19/2005,10/03/2004, 4 [id number] Novel Flu- Nasal 11/30/2009 HIB, Unspecified 08/25/2004,2003, 3 HPV Quadrivalent 2015 HPV9 (Gardasil) 05/30/2016,01/30/2016 Hepatitis B, Peds (Engerix-B/Recombivax HB) 08/25/2004,2003,2003 Influenza (H1N1) 11/30/2009 Influenza Vaccine >6 months,quad, PF 09/21/2013 Influenza Vaccine, 6+MO IM (QUADRIVALENT W/PRESERVATIVES) 08/10/2019,08/12/2017,08/28/2012 MMR (MMRII) 06/25/2008,07/26/2004 Meningococcal ACWY (Menactra ) 2015 Pneumo Conj 13-V (2010&after) 08/25/2004, 004 Pneumococcal (PCV 7) 08/25/2004,01/03/20 04,2003,08/31 Poliovirus, inactivated (IPV) 04/12/2004, 003,2003 TDAP (Adacel,Boostrix) 2015 Varicella (Varivax) 07/20/2015,07/26/2004 Family History Medical History Relation Comments Lumbar disc disease Maternal Grandfather Chronic pain patient Osteoarthritis Maternal Grandmother Chronic james n patient Lumbar disc disease Mother Chronic pain patient Relation Status Comments Maternal Grandfather Maternal Grandmother Mother Social History Tobacco Use Types Packs/Day Years [...] on file 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 Gender Identity Not on file Sexual Orientation Not on file Last Filed Vital Signs Vital Sign Reading Time Taken Comments Blood Pressure 120/67 09/05/2023 10:38 AM CDT Pulse 60 09/05/2023 10:38 AM CDT Temperature 36.4 C (97.5 F) 09/05/2023 10:38 AM CDT Respiratory Rate 14 09/05/2023 10:38 AM CDT Oxygen Saturation 96% 09/05/2023 10:38 AM CDT Inhaled Oxygen Concentration - - Weight 79.4 kg (175 lb) 09/05/2023 10:38 AM CDT Height 182.9 cm (6') 08/17/2021 1:55 PM CDT Body Mass Index 23.73 08/17/2021 1:55 PM CDT Plan of Treatment Health Maintenance Due Date Last Done Comments ADVANCE CARE PLANNING 2003 ANNUAL REVIEW OF HM ORDERS 2003 ASTHMA ACTION PLAN 2003 Pneumococcal Vaccine: Pediat rics (0 to 5 Years) and At-Risk Patients (6 to 49 Years) (1 of 1 - PPSV23) 2009 08/25/2004, 08/25/2004, 01/03/2004, Additional history exists MENINGITIS B IMMUNIZATION (1 of 2 - Standard) 2019 ASTHMA CONTROL TEST 08/16/2021 02/14/2021, 08/10/2019, 08/10/2019 YEARLY PREVENTIVE VISIT 07/26/2022 07/26/20 21, 08/12/2017, 08/12/2017, Additional history exists COVID-19 Vaccine (1 - 2023-2 5 season) 2024 INFLUENZA VACCINE (#1) 2024 9, 08/12/2017, 09/21/2013, Additional history exists PHQ-2 (once per calendar year) 2024 0 05/16/2021, 05/16/2021, 03/03/2021, Additional history exists DTAP/TDAP/TD IMMUNIZATION (7 - Td or Tdap) 08/18/2032 08/18/2022, 2015, 08/25/2004, Additional history exists ZOSTER IMMUNIZATION (1 of 2) 2053 HEPATITIS B IMMUNIZATION Completed 004, 08/25/2004, 2003, Additional history exists HPV IMMUNIZATION Completed 05/30/2016, , 2015 MENINGITIS IMMUNIZATION Completed 07/26/2021, 06/29 HEPATITIS C SCREENING Completed 05/06/2023 HIV SCREENING Completed 05/06/2023, 07/26/2021 Procedures Procedure Name Priority Date/Time Associated Diagnosis Comments ASTHMA CONTROL TEST - HIM SCAN 08/10/2019 from Last 3 Months or Most Recently Relevant to Health Maintenance Results * ASTHMA CONTROL TEST - HIM SCAN (08/10/2019) us Historical Provider PFT ORDERABLES Final Result from Last 3 Months or Most Recently Relevant to Health Maintenance Care Teams Designer Relationship Specialty Start Date End Date No Ref-Primary, Physician PCP - General 07/30/24 Preethi Sutherland MD Pediatrics 01/04/16 Martha Cavanaugh MD [facility] [address] [place] [address] [address] [place] [address] Referring Physician 01/26/16
[2025-03-14 23:12] VITALS: BP 146/90; PULSE 84; RESP 14; TEMP 36.1; O2SAT 96
--- NOTE | 2025-03-14 23:35 | ED_ITS ---
HPI - Dental/Oral General Date Seen: 03/14/25 Chief complaint: Dental/Oral/Mouth Injury/Pain Stated complaint: tooth pain, painful swallowing Time Seen by Provider: 03/14/25 23:09 Source: patient and family Mode of arrival: ambulatory Limitations: no limitations History of Present Illness HPI Narrative: Patient is a very nice 19-year-old gentleman who presents here with tooth pain, tooth pain is been for the last couple days, heave feels on his lower wisdom teeth, there is some yellow areas any thinks he needs some antibiotics. Mouth opening is normal, he has had no fevers or chills, he knows that he has to make an appointment and plans on make an appoint with a dentist tomorrow, he works as a town administrator here in [place]. Location: Tooth # Teeth map: 2 1. 2. Onset (ago): day(s) Duration: constant Severity: moderate Relieving factors: nothing Exacerbating factors: nothing Context: history of dental caries Treatment prior to arrival: oral analgesic Related Data Home Medications ?Medication ?Instructions ?Recorded ?Confirmed No Known Home Medications 10/14/23 10/14/23 Allergies Allergy/AdvReac Type Severity Reaction Status Date / Time aripiprazole Allergy Severe Seizure Verified 09/03/23 06:58 cat dander Allergy Intermediate Wheezing Verified 09/03/23 06:58 Review of Systems 2 Status of ROS: Reports: 10 or more systems reviewed and unremarkable except as noted in History and below [facility] Social History Smoking Status: Current every day smoker What tobacco products do you use: cigarettes Do you use any of these nicotine containing products: None Second hand tobacco smoke exposure: No How often do you have a drink containing alcohol: never AUDIT-C Alcohol total score: 0 Non-prescribed substance use: denies use Exam 2 Narrative: Exam Narrative: On examination Spencer is in no apparent distress he is pleasant alert his vital signs are reviewed. Pupils equal round reactive to light there is no swelling noted around his mouth or, under is jaw, his mouth opening is normal with absence of trismus. He does have some areas of redness around just behind his molars, consistent with where his wisdom teeth would be coming in, there is no lymphadenopathy anterior posterior chains or swelling at the floor of his mouth, his upper teeth look normal, he does have some caries. Neck is supple full range of motion, absence of meningismus. Skin reveals no rashes. Cranial nerves 3-12 are otherwise normal. Const: Vital Signs, click to edit/add: Vital Signs - 24 hr 03/14/25 23:12 Temperature 97.0 F L Pulse Rate [Right Pulse Oximeter] 84 Respiratory Rate 14 Blood Pressure [Ri ght Upper Arm] 146/90 H Pulse Oximetry 96 Oxygen Delivery Me thod Room Air Documenting provider has reviewed patient's vital signs: yes Course Vital Signs Vital signs: Initial Vital Signs Temperature 97.0 F L 03/14/25 23:12 Temperature Source Temporal Artery Scan 03/14/25 23:12 Pulse Rate 84 03/14/25 23:12 Respiratory Rate 14 03/14/25 23:12 Blood Pressure 146/90 H 03/14/25 23:12 Blood Pressure Mean 108 H 03/14/25 23:12 Blood Pressure Position Sitting 03/14/25 23:12 Pulse Oximetry 96 03/14/25 23:12 Oxygen Delivery Method Room Air 03/14/25 23:12 Vital Signs Temperature 97.0 F L 03/14/25 23:12 Pulse Rate 84 03/14/25 23:12 Respiratory Rate 14 03/14/25 23:12 Blood Pressure 146/90 H 03/14/25 23:12 Pulse Oximetry 96 03/14/25 23:12 Oxygen Delivery Method Room Air 03/14/25 23:12 Temperature 97.0 F L 03/14/25 23:12 Pulse Rate 84 03/14/25 23:12 Respiratory Rate 14 03/14/25 23:12 Blood Pressure 146/90 H 03/14/25 23:12 Pulse Oximetry 96 03/14/25 23:12 Oxygen Delivery Method Room Air 03/14/25 23:12 MDM - Dental/Oral MDM Narrative Medical decision making narrative: Life-threatening differential diagnosis considered include mastoiditis, and retropharyngeal abscess. Other differential diagnosis considered include dental caries, periodontal abscess, periapical abscess, parotitis, tooth avulsion, tooth fracture, gingivitis as well as other etiologies Differential Diagnosis Differential diagnosis: Likely gingival abscess, dental caries, toothache, dental abscess, fracture of tooth and aphthous ulcer Medical Records Attestation: I reviewed the patient's medical records. Discharge Plan Discharge Clinical Impression: Toothache Patient Disposition: Home, Self-Care Condition: Stable Instructions: Toothache (ED) Additional Instructions: Home rest, continue to use the Tylenol and/or ibuprofen, follow-up with dentistry cause these will need to be removed, take the antibiotics as directed lots of probiotics with this, as they can cause some diarrhea. Augmentin 875 mg p.o. b.i.d. for 10 days is prescribed. Activity Level: Light activity Discharge Diet: Regular Prescriptions: No Action No Known Home Medications Follow Up/Referrals: Provider,Not a Local [Primary Care Provider] - Stand Alone Forms: Chefth Info Instructions
--- OUTSIDE RECORDS SUMMARY | 2025-03-14 23:37 | XMS_ITS | Encounter Summary ---
Author Organization [facility] Address [address] [place] [address]. [place] [address] Care Team Providers Care Enrolled Agent Name Role Phone Alicia Magaña Primary Care Provider [phone] Preethi Sutherland MD Unavailable + Martha Cavanaugh MD Unavailable [phone] Jose Brunner MD Unavailable No Ref-Primary, Physician Primary Care Provider Reason for Visit * Reason Comments Pharyngitis Encounter Details Date Type Department Care Team (Latest Contact Info) Description 05/16/2021 Office Visit - [address] [phone] Jose Brunner MD [address] [place] [id number] Acute pharyngitis, unspecified etiology; Nasal congestion; History [...] on file 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 male who is being evaluated via a billable telephone visit. What phone number would you like to be contacted at? [phone] How would you like to obtain your [...] in a long time. He works at [employer], could not work today. He has not [...] documented as of this encounter Care Teams Enrolled Agent Relationship Specialty Start Date End Date Alicia Magaña PCP - General Family Practice 06/01/14 07/29/24 No Ref-Primary, Physician PCP - General 07/30/24 Preethi Sutherland MD Pediatrics 01/04/16 Martha Cavanaugh MD [address] [phone] Referring Physician 01/26/16 Jose Brunner MD [address] [place] [id number] Assigned PCP 04/26/21 07/02/24 documented as of this encounter
--- OUTSIDE RECORDS SUMMARY | 2025-03-14 23:37 | XMS_ITS | Clinical Summary ---
Author Organization [facility] Address [address] [place] [phone] Phone Care Team Providers Care Software Quality Specialist Name Role Phone Unavailable Primary Care [...]
--- OUTSIDE RECORDS SUMMARY | 2025-03-14 23:37 | XMS_ITS | Clinical Summary ---
Author Organization [facility] Address [address] [place] [address] Care Team Providers Care Histopath Tech Name Role Phone None Reported, Pcp Primary Care Provider Unavail able Source Comments Patient records contain information from all sites at [facility]. For routine questions regarding patient records, call [phone] during business hours, M-F 8:00 AM - 5:00 PM Central Time. Record requests for emergency care only can be directed to [phone] at any time.[facility] Allergies Active Allergy Reactions Criticality Noted Date [...] CDT - 02/24/2025 9:10 PM CDT Emergency [facility] [address] [phone] Christy Lewis P.A.-C., P.A. Cracked Tooth (Primary Dx); Toothache Discharge Disposition: Home or Self Care 02/15/2025 3:21 PM CDT - 02/15/2025 4:17 PM CDT Emergency [facility] [address] [place] [address], [place] [address] Aleyda Esquivel APRN CJonasN.P. 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
--- OUTSIDE RECORDS SUMMARY | 2025-03-14 23:37 | XMS_ITS | Encounter Summary ---
Author Organization [facility] Address [address] [place] [address]. 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 No / Unsure 11/17/2021 6:22 PM BABYSITTER documented as of this encounter Plan of Treatment Not on file documented as of this encounter Visit Diagnoses Not on filedocumented in this encounter Additional Health Concerns Assessment Noted Time PHQ-9 Depression Total Score: 3 05/20/20 21 8:48 PM CDT documented as of this encounter Care Teams Digital Marketing Assistant Relationship Specialty Start Date End Date Alicia Magaña PCP - General Family Practice 06/01/14 07/29/24 No Ref-Primary, Physician PCP - General 07/30/24 Preethi Sutherland MD Pediatrics 01/04/16 Martha Cavanaugh MD [address] [phone] Referring Physician 01/26/16 Jose Brunner MD [address] [place] [id number] Assigned PCP 04/26/21 07/02/24 documented as of this encounter
--- OUTSIDE RECORDS SUMMARY | 2025-03-14 23:37 | XMS_ITS | Encounter Summary ---
Author Organization [facility] Address [address] [place] [address] Care Team Providers Care Potato Bucker Name Role Phone None Reported, Pcp Primary Care Provider Unavail able Reason for Visit * Reason Comments Dental Pain Pt presents to ED wi th concerns of right upper dental pain. Has had intermittent pain but pain developed again today. Encounter Details Date Type Department Care Team (Late st Contact Info) Description 02/24/2025 7:56 PM CDT - 02/24/2025 9:10 PM CDT Emergency [facility] [address] [place] [phone] Christy Lewis, PJonasA.-C., P.A. 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 * Dental Abscess Fbvv-zn-[id number] (Spanish) documented in this encounter Medications at Time [...] R.N.) documented in this encounter Care Teams Potato Bucker Relationship Specialty Start Date End Date None Reported, Pcp PCP - General Family Medicine 02/15/25 documented as of this encounter
--- OUTSIDE RECORDS SUMMARY | 2025-03-14 23:37 | XMS_ITS | Encounter Summary ---
Author Organization [facility] Address [address] [place] [address]. 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 Gender Identity Not on file Sexual Orientation Not on file documented as of this encounter Plan of Treatment Not on file documented as of this encounter Visit Diagnoses Not on filedocumented in this encounter Care Teams Corporate Strategy Analyst Relationship Specialty Start Date End Date Alicia Magaña PCP - General Family Practice 06/01/14 07/29/24 No Ref-Primary, Physician PCP - General 07/30/24 Preethi Sutherland MD Pediatrics 01/04/16 Vanesa Valentine GC [address] [id number] Genetic Counselor Genetic Counselor, [place] 01/04/16 Martha Cavanaugh MD [facility] [address] [place] [address] [place] [phone] Referring Physician 01/26/16 Jose Brunner MD [address] [place] [id number] Assigned PCP 04/26/21 07/02/24 documented as of this encounter
--- OUTSIDE RECORDS SUMMARY | 2025-03-14 23:37 | XMS_ITS | Encounter Summary ---
Author Organization [facility] Address [address] [place] [address]. 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 No / Unsure 11/17/2021 6:22 PM CERTIFICATION ENGINEER documented as of this encounter Plan of Treatment Not on file documented as of this encounter Visit Diagnoses Not on filedocumented in this encounter Additional Health Concerns Assessment Noted Time PHQ-9 Depression Total Score: 3 05/20/20 21 8:48 PM CDT documented as of this encounter Care Teams Pipe Coverer And Insulator Relationship Specialty Start Date End Date Alicia Magaña PCP - General Family Practice 06/01/14 07/29/24 No Ref-Primary, Physician PCP - General 07/30/24 Preethi Sutherland MD Pediatrics 01/04/16 Martha Cavanaugh MD [address] [phone] Referring Physician 01/26/16 Jose Brunner MD [address] [place] [id number] Assigned PCP 04/26/21 07/02/24 documented as of this encounter
--- OUTSIDE RECORDS SUMMARY | 2025-03-14 23:37 | XMS_ITS | Encounter Summary ---
Author Organization [facility] Address [address] [place] [address]. 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 Gender Identity Not on file Sexual Orientation Not on file documented as of this encounter Plan of Treatment Not on file documented as of this encounter Visit Diagnoses Not on filedocumented in this encounter Care Teams Composition Worker Relationship Specialty Start Date End Date Alicia Magaña PCP - General Family Practice 06/01/14 07/29/24 No Ref-Primary, Physician PCP - General 07/30/24 Preethi Sutherland MD Pediatrics 01/04/16 Vanesa Valentine GC [address] [address] Genetic Counselor Genetic Counselor, [place] 01/04/16 Martha Cavanaugh MD [facility] [address] [place] [address] [place] [phone] Referring Physician 01/26/16 Jose Brunner MD [address] [place] [id number] Assigned PCP 04/26/21 07/02/24 documented as of this encounter
--- OUTSIDE RECORDS SUMMARY | 2025-03-14 23:38 | XMS_ITS | Encounter Summary ---
Author Organization [facility] Address [address] [place] [address] Care Team Providers Care Industrial Yard Brake Coupler Name Role Phone Unavailable Primary Care Provider Unavailabl e Reason for Visit * Reason Comments Fever Generalized Body Aches Chills Abdominal Pain Encounter Details Date Type Department Care Team (Late st Contact Info) Description 03/10/2025 8:51 PM CDT - 03/10/2025 9:25 PM CDT Emergency [facility] [address] [place] [phone] Mandeep Aguilar NP [address] [place] [id number] Viral syndrome (Primary Dx) Discharge Disposition: [...] Aguilar NP - 03/10/2025 9:15 PM CDT [id number] Viral Syndrome (Adult) A viral illness may [...] smoke from others. ?? You may use sfde-ikw-pfsvwhn acetaminophen or ibuprofen for fever, muscle aching, [...] and be dangerous to your health. ?? Djtd-etu-ycqfhgm remedies won't shorten the length of the [...] you. Last Reviewed Date: 2024 00:00:00 ?? [id number] [employer]. All rights reserved. This information is not [...] (ABNORMAL) Respiratory 4-Plex (03/10/2025 9:14 PM CDT) [facility] Influenza A, PCR Negative Negative 03/10/2025 10:14 PM CDT [facility] Influenza B, PCR Positive(A) Negative 03/10/2025 10:14 PM CDT [facility] RSV, PCR Negative Negative 03/10/2025 10:14 PM CDT [facility] SARS-CoV-2 PCR Negative Negative 03/10/2025 10:14 PM CDT [facility] Swab Nasopharyngeal structure / Unknown Non-blood Collection / Unknown 03/10/2025 9:14 PM CDT 03/10/2025 9:26 PM CDT us Mandeep Aguilar NP LAB MICROBIOLOGY - GENERAL ORD ERABLES Final Result [facility] [address] [place] [address] documented in this encounter Visit Diagnoses Diagnosis Viral syndrome- Primary Unspecified viral infection, in conditions classified elsewhere and of unspecified site documented in this encounter Additional Health Concerns Infection Onset Date Last Indicated Resolved Time Respiratory Rule-Out 03/10/2025 03/10/2025 025 8:14 PM PDT documented as of this encounter
--- OUTSIDE RECORDS SUMMARY | 2025-03-14 23:38 | XMS_ITS | Encounter Summary ---
Author Organization [facility] Address [address] [place] [address] Care Team Providers Care Home Health Caregiver Name Role Phone None Reported, Pcp Primary Care Provider Unavail able Reason for Visit * Reason Comments Leg Injury Fell and hit frausto on a bench, causing a left frausto laceration Encounter Details Date Type Department Care Team (Late st Contact Info) Description 02/15/2025 3:21 PM CDT - 02/15/2025 4:17 PM CDT Emergency [facility] [address] [place] [phone] Aleyda Esquivel, DRY END TESTER, C.N.P. 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 * Laceration Care Adult Yugu-yw-Bqer (Nepali) documented in this encounter Medications at Time [...] (Due) documented in this encounter Care Teams Home Health Caregiver Relationship Specialty Start Date End Date None Reported, Pcp PCP - General Family Medicine 02/15/25 documented as of this encounter
--- OUTSIDE RECORDS SUMMARY | 2025-03-14 23:38 | XMS_ITS | Clinical Summary ---
Author Organization [facility] Address [address] [place] [address] Care Team Providers Care Shipping Room Helper Name Role Phone Unavailable Primary Care Provider [...] CDT - 03/10/2025 9:25 PM CDT Emergency [facility] [address] [phone] Mandeep Aguilar, RASHEED Viral syndrome [...] 2003 Lipid Screening 2003 Tobacco Screening 2003 [id number] ( season) 2024 Imm-Influenza (#1) 2024 08/10/2019, [...] PCR Negative Negative 03/10/2025 10:14 PM CDT [facility] Influenza B, PCR Positive(A) Negative 03/10/2025 10:14 PM CDT [facility] RSV, PCR Negative Negative 03/10/2025 10:14 PM CDT [facility] SARS-CoV-2 PCR Negative Negative 03/10/2025 10:14 PM CDT [facility] Swab Nasopharyngeal structure / Unknown Non-blood Collection / Unknown 03/10/2025 9:14 PM CDT 03/10/2025 9:26 PM CDT us Mandeep Aguilar COMBAT CONTROL MANAGER LAB MICROBIOLOGY - GENERAL ORD ERABLES Final Result [facility] [address] [place] [address] from Last 3 Months Additional Health Concerns Infection Onset Date Last Indicated Influenza 03/10/2025 03/10/2025
--- OUTSIDE RECORDS SUMMARY | 2025-03-14 23:38 | XMS_ITS | Clinical Summary ---
Author Organization [facility] Address [address] [place] [id number] Care Team Providers Care Chemical Worker Name Role Phone Nereyda Barrera DO Primary [...] Description 03/09/2025 3:25 PM CDT Office Visit [facility] [address] [place] [address] Mya Polo, RASHEED STD (sti/std testing) 03/09/2025 Travel 02/11/2025 9:00 AM CDT Office Visit [facility] [address] [place] [address] Lissy Matamoros PA Throat Problem (SOB, sore throat, runny nose, cough, and congestions, fatigue x 3 days. 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 Gender Identity Not on file Sexual Orientation [...] Results * (ABNORMAL) POCT Urinalysis Dipstick Only [[id number]] (03/09/2025 3:24 PM CDT) PH 7.0 5.0 - 8.0 [facility] SPECIFIC GRAVITY 1.020 1.001 - 1.035 [facility] GLUCOSE NEGATIVE NEGATIVE [facility] BILIRUBIN NEGATIVE NEGATIVE [facility] KETONES TRACE(A) NEGATIVE [facility] OCCULT BLOOD NEGATIVE NEGATIVE [facility] PROTEIN TRACE(A) NEGATIVE [facility] NITRITE NEGATIVE NEGATIVE [facility] LEUKOCYTE ESTERASE NEGATIVE NEGATIVE [facility] Urine URINE SPECIMEN / Unknown 03/09/2025 3:24 PM CDT 03/09/2025 3:26 PM CDT Mya Polo ACCOUNTS PAYABLE MANAGER URINE Final Res ult Performing Organization Address City/[facility]/ZIP Co de Phone Number [facility] [address] [place] [address], [facility] [address] [place] [address] * TRICHOMONAS AMPLIFIED PROBE (03/09/2025 3:21 PM CDT) TRICHOMONAS AMPLIFIED PROBE Negative 03/12/2025 12:05 PM CDT [facility] Other URINE SPECIMEN / Unknown Non-Blood / Unknown 03/09/2025 3:21 PM CDT 03/09/2025 3:21 PM CDT Mya Polo ACCOUNTS PAYABLE MANAGER MICROBIOLOGY Final Res ult [facility] [address] [place] [address], * GC CHLAMYDIA TRACH PROBE (03/09/2025 3:21 PM CDT) CHLAMYDIA PROBE Negative 2:36 PM CDT [facility] N GONORRHOEAE PROBE Negative 03/10/2025 2:36 PM CDT [facility] Other URINE SPECIMEN / Unknown Non-Blood / Unknown 03/09/2025 3:21 PM CDT 03/09/2025 3:21 PM CDT Mya Polo ACCOUNTS PAYABLE MANAGER MICROBIOLOGY Final Res ult [facility] [address] [place] [address], [place] * POCT Throat Rapid Strep (02/11/2025 9:16 AM CDT) POC, GROUP A STREP NOT DETECTED NOT DETECTED [facility] (Urgent Care) Comment: The [place] [employer] recommends that a throat culture be performed if a rapid group A streptococcus assay yields a negative result. app2you recommends Streptococcus, Group A culture. Throat SPECIMEN FROM THROAT / Unknown 02/11/2025 9:16 AM CDT 02/11/2025 9:16 AM CDT Lissy Matamoros PA MICROBIOLOGY Final Result Performing Organization Address City/[facility]/ZIP Co de Phone Number [facility] [address] [place] [address], [facility]) [address] [place] [address] * COVID-19 MOLECULAR (02/11/2025 9:14 AM CDT) Pathologist [facility] COVID 19 [facility] MOLECULAR Negative Negative 02/11/2025 11:07 PM CDT [facility] 02/11/2025 11:07 PM CDT [facility] Comment:Specimen submitted t o [facility] for testing. Other OROPHARYNGEAL / Unknown Non-Blood / Unknown 02/11/2025 9:14 AM CDT 02/11/2025 9:14 AM CDT Narrative [facility] - 02/11/2025 11:07 PM CDT All PCR tests are subject to false negative result due to variability in viral load and collection technique. A negative result does not rule out a SARS-CoV-2 infection. Clinical correlation required. Lissy Barrsd PA MICROBIOLOGY Final Result Performing Organization Address [facility] Co de Phone Number [facility] [address] [address], [place] * INFLUENZA A/B PCR (02/11/2025 9:14 AM CDT) INFLUENZA A PCR Negative 02/11/2025 11:07 PM CDT [facility] INFLUENZA B PCR Negative 02/11/2025 11:07 PM CDT [facility] Other OROPHARYNGEAL / Unknown Non-Blood / Unknown 02/11/2025 9:14 AM CDT 02/11/2025 9:14 AM CDT Lissy Brarsd PA MICROBIOLOGY Final Result Performing Organization Address [facility] Co de Phone Number [facility] [address] [address], [place] * STREP A PCR (02/11/2025 9:13 AM CDT) GROUP A STREP Negative 02/11/2025 4:01 PM CDT [facility] TRA [facility]AT[facility] Throat SPECIMEN FROM THROAT / Unknown Non-Blood / Unknown 02/11/2025 9:13 AM CDT 02/11/2025 9:43 AM CDT Lissy Minaya Saturnino PA MICROBIOLOGY Final Result Performing Organization Address [facility] Co de Phone Number [facility] [address] [address], [place] * XR CHEST 2 VIEWS PA [...] CHEST 2 VIEWS PA AND LATERAL LOCATION: [facility] DATE: 02/02/2025 INDICATION: Chest pain COMPARISON: [...] CHEST 2 VIEWS PA AND LATERAL LOCATION: [facility] DATE: 02/02/2025 INDICATION: Chest pain COMPARISON: 08/26/2023, 11/27/2022 IMPRESSION: Negative chest. Robert AGUIRRE GENERAL IMAGING Final R esult * TROPONIN T (HS) ACUTE W/2HR REFLEX (02/02/2025 9:02 PM CDT) TROPONIN T HS <6 6-15 ng/L ng/L 02/02/2025 9:25 PM CDT [facility] Blood BLOOD SPECIMEN / Unknown PIV Device / Unknown 02/02/2025 9:02 PM CDT 02/02/2025 9:05 PM CDT Narrative [facility] - 02/02/2025 9:25 PM CDT hs-cTnT [...] population. Robert AGUIRRE CHEMISTRY Final R esult [facility] [address] [place] [address], * CBC WITH AUTO DIFFERENTIAL (02/02/2025 9:02 PM CDT) Pathologist [facility] WHITE BLOOD COUNT 8.8 4.5 - 11.0 thou/cu mm 02/02/2025 9:08 PM CDT [facility] RED BLOOD COUNT 5.18 4.30 - 5.90 mil/cu mm 02/02/2025 9:08 PM CDT [facility] HEMOGLOBIN 16.1 13.5 - 17.5 g/dL 02/02/2025 9:08 PM CDT [facility] HEMATOCRIT 46.1 37.0 - 53.0 % 02/02/2025 9:08 PM CDT [facility] MCV 89 80 - 100 fL 02/02/2025 9:08 PM CDT [facility] MCH 31.1 26.0 - 34.0 pg 02/02/2025 9:08 PM CDT [facility] MCHC 34.9 32.0 - 36.0 g/dL 02/02/2025 9:08 PM CDT [facility] RDW 11.7 11.5 - 15.5 % 02/02/2025 9:08 PM CDT [facility] PLATELET COUNT 284 140 - 440 thou/cu mm 02/02/2025 9:08 PM CDT [facility] MPV 8.9 6.5 - 11.0 fL 02/02/2025 9:08 PM CDT [facility] NRBC 0.0 % 02/02/2025 9:08 PM CDT [facility] ABS NRBC 0.0 thou /cu mm 02/02/2025 9:08 PM CDT [facility] % NEUT 57.2 % 02/02/2025 9:08 PM CDT [facility] % LYMPH 31.8 % 02/02/2025 9:08 PM CDT [facility] % MONO 8.5 % 02/02/2025 9:08 PM CDT [facility] % EOS 1.6 % 02/02/2025 9:08 PM CDT [facility] % BASO 0.6 % 02/02/2025 9:08 PM CDT [facility] % IMMATURE GRAN (METAS,MYELOS,CO OS) 0.3 % 02/02/2025 9:08 PM CDT [facility] ABSOLUTE NEUTROPHILS 5.0 1.7 - 7.0 thou/cu mm 02/02/2025 9:08 PM CDT [facility] ABSOLUTE LYMPHOCYTES 2.8 0.9 - 2.9 thou/cu mm 02/02/2025 9:08 PM CDT [facility] ABSOLUTE MONOCYTES 0.7 <0.9 thou/cu mm 02/02/2025 9:08 PM CDT [facility] ABSOLUTE EOSINOPHILS 0.1 <0.5 thou/cu mm 02/02/2025 9:08 PM CDT [facility] ABSOLUTE BASOPHILS 0.1 <0.3 thou/cu mm 02/02/2025 9:08 PM CDT [facility] ABSOLUTE IMMATURE GRANULOCYTES(MET ,MYELOS,PROS) 0.0 <0.3 thou/cu mm 02/02/2025 9:08 PM CDT [facility] Blood BLOOD SPECIMEN / Unknown PIV Device / Unknown 02/02/2025 9:02 PM CDT 02/02/2025 9:05 PM CDT Robert AGUIRRE HEMATOLOGY Final R esult [facility] [place] [address], * BASIC METABOLIC PANEL (02/02/2025 9:02 PM CDT) SODIUM 137 136 - 145 mmol/L 02/02/2025 9:25 PM CDT [facility] POTASSIUM 3.6 3.5 - 5.1 mmol/L 02/02/2025 9:25 PM CDT [facility] CHLORIDE 101 98 - 107 mmol/L 02/02/2025 9:25 PM CDT [facility] CO2,TOTAL 25 22 - 29 mmol/L 02/02/2025 9:25 PM CDT [facility] ANION GAP 11 5 - 18 02/02/2025 9:25 PM CDT [facility] GLUCOSE 86 70 - 99 mg/dL 02/02/2025 9:25 PM CDT [facility] CALCIUM 9.8 8.8 - 10.4 mg/dL 02/02/2025 9:25 PM CDT [facility] Comment: Reference ranges for this test were updated on 09/15/2024 to reflect our healthy population more accurately. Reference range changes are not retroactively applied to results, but previous results using the same methodology can be interpreted in the context of the new reference range. BUN 14 6 - 20 mg/dL 02/02/2025 9:25 PM CDT [facility] CREATININE 0.77 0.70 - 1.20 mg/dL 02/02/2025 9:25 PM CDT [facility] BUN/CREAT RATIO 18 10 - 20 9:25 PM CDT [facility] eGFR >90 >90 mL/min/1.7 3m2 02/02/2025 9:25 PM CDT [facility] Comment:As of 2022, eG FR is [...] Robert Ajit AGUIRRE CHEMISTRY Final R esult [facility] [address] [place] [address], [place] [phone] * EKG 12 LEAD (02/02/2025 7:58 PM [...] NOW QTc 390 ms [facility] NOW P [place] 69 degrees BEYOND NOW R [place] 74 degrees BEYOND NOW T [place] 60 degrees [facility] NOW 02/02/2025 7:58 PM CDT 02/02/2025 10:16 PM CDT Narrative [facility] - 02/02/2025 10:16 PM CDT Test Indication: CHEST PAIN Olivier Ndiaye MD EKG ORD Final Resu lt [facility] [place], [place] * HIV 1/2 AG/AB 4TH GEN W/RFL (QUEST) (08/17/2024 9:38 AM CDT) Pathologist [facility] HIV AG/AB, 4TH GEN NON-REACT EARL NON-REACT EARL [facility] Comment: HIV-1 antigen and HIV-1/HIV-2 antibodies were [...] purpose. For additional information please refer to http://education.CodeRyte.AxisMobile/faq/KJB957 (This link is being provided for informational/ educational purposes only.) The performance of this assay has not been clinically validated in patients less than 2 years old. Blood BLOOD SPECIMEN / Unknown 08/17/2024 9:38 AM CDT 08/17/2024 9:40 AM CDT Narrative [facility] - 08/19/2024 3:19 AM CDT FASTING:UNKNOWN FASTING: UNKNOWN Jannie Moraes NP SEND OUTS Final Result Performing Organization Address [facility] Co de Phone Number [employer] [address] [place] [address], [facility] [address] [place] [address] * ANTI HCV (08/17/2024 9:38 AM CDT) HEPATITIS C ANTIBODY NON-REACTI VE NON-REACT EARL [facility] Comment: HCV antibody was non-reactive. There is no laboratory evidence of HCV infection. In most cases, no further action is required. However, if recent HCV exposure is suspected, a test for HCV RNA (test code 37567) is suggested. For additional information please refer to http://education.TicketBase/faq/YZQ04g7 (This link is being provided for informational/ educational purposes only.) Blood BLOOD SPECIMEN / Unknown 08/17/2024 9:38 AM CDT 08/17/2024 9:40 AM CDT Narrative [facility] - 08/19/2024 3:19 AM CDT FASTING:UNKNOWN FASTING: UNKNOWN us Jannie Moraes NP SEND OUTS Final Result Performing Organization Address [facility] Co de Phone Number [employer] [facility] [facility] [address] [place] [place] [address], [place] [phone] [employer] [address] [place] [address] from Last 3 Months or Most Recently Relevant to Health Maintenance Insurance [employer] Care Teams Chemical Worker Relationship Specialty Start Date End Date Nereyda Barrera DO [address] [facility] [place] [address] PCP - General Family Practice 09/27/22
--- OUTSIDE RECORDS SUMMARY | 2025-03-14 23:38 | XMS_ITS | Encounter Summary ---
Author Organization [facility] Address [address] [place] [address] Care Team Providers Care Knurling Machine Tender Name Role Phone Unavailable Primary Care Provider [...]
--- OUTSIDE RECORDS SUMMARY | 2025-03-14 23:38 | XMS_ITS | Clinical Summary ---
Author Organization [facility] Address [address] [place] [address]. 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
== END 2025-03-14 23:40 | disposition home or self-care (01) ==
LOC: ED 23:35
PROVIDERS: Emergency Provider Family Medicine
DX: R22.0 Localized swelling, mass and lump, head (principal); K08.89 Other specified disorders of teeth and supporting structures
CPT/HCPCS: 96372; 99283; 99284